=== PATIENT | female | born 1985 | race American Indian/Alaskan Native ===

== ENCOUNTER 2017-08-28 07:59 | Emergency (ER) | payer MEDICAID ==
[2017-08-28] MEDS ORDERED: NACL 0.9% 1000 ML 1,000 ML IV ONE (09:38)
[2017-08-28 10:39] LABS: Hematocrit 37.9 % (30.3-42.9); Hemoglobin 12.8 gm/dl (10.1-14.3); Mean Corpuscular HGB Conc 34 % (30-34); Mean Corpuscular Hemoglobin 28 pg (28-32); Mean Corpuscular Volume 82 fl (79-97); Platelet Count 181 K/mm3 (140-440); Red Blood Count 4.61 M/mm3 (3.65-5.03); Red Cell Distribution Width 13.6 % (13.2-15.2); White Blood Count 5.8 K/mm3 (4.5-11.0)
[2017-08-28 10:58] LABS: Bilirubin,Urine NEG (Negative); Blood,Urine SM (Negative); Ketones,Urine NEG (Negative); Leukocyte Esterase,Urine NEG (Negative); Mucus,Urine FEW /HPF; Nitrite,Urine NEG (Negative); Protein,Urine <15 mg/dL mg/dL (Negative)
[2017-08-28 11:55] LABS: Anion Gap 16 mmol/L; BUN/Creatinine Ratio 17; Blood Urea Nitrogen 10 mg/dL (7-17); Calcium 8.9 mg/dL (8.4-10.2); Carbon Dioxide 26 mmol/L (22-30); Chloride 103.3 mmol/L (98-107); Glucose 81 mg/dL (65-100); Potassium 4.4 mmol/L (3.6-5.0); Sodium 141 mmol/L (137-145)
--- NOTE | 2017-08-28 11:57 | XRay Report ---
Chest 2 views: History: Chest pain. Findings: Normal cardiomediastinal silhouette. Trachea is midline. No consolidation, pneumothorax or pleural effusion. Impression: No acute cardiopulmonary findings.
[2017-08-28] MEDS ORDERED: REGLAN IV ONE (11:59)
[2017-08-28] MEDS ORDERED: TORADOL IV ONE (11:59)
[2017-08-28] MEDS ORDERED: BENADRYL IV ONE (11:59)
--- NOTE | 2017-08-28 13:53 | Cat Scan Report ---
CT scan of head without IV contrast: History: Headache and dizziness. Findings: Ventricles are normal in size and midline in location. No evidence of acute ischemia, hemorrhage or mass. No extra-axial fluid collection. Normal brainstem and cerebellum. Impression: No acute infiltrate or
--- NOTE | 2017-08-28 14:38 | Emergency Department Report ---
ED Chest Pain HPI - General Chief Complaint: Chest Pain Stated Complaint: CHEST PAIN, HEADACHE Source: patient Mode of arrival: Ambulatory Limitations: No Limitations - History of Present Illness Severity scale (0 -10): 10 - Related Data Previous Rx's Medication Instructions Recorded Last Taken Type Albuterol Sulfate [Ventolin HFA] 2 puff IH Q4H PRN #1 hfa.aer.ad 01/18/16 2 Months Ago Rx Fluconazole [Diflucan TAB] 150 mg PO ONCE #1 tablet 03/25/16 Unknown Rx Sulfamethoxazole/Trimethoprim 1 each PO BID #14 tablet 03/25/16 Unknown Rx [Bactrim DS TAB] Naproxen [Naprosyn TAB] 500 mg PO BID PRN #25 tablet 01/12/17 Unknown Rx Nitrofurantoin [place]/M-Cryst 100 mg PO Q12HR #14 capsule 01/12/17 Unknown Rx [Macrobid CAP] Allergies Allergy/AdvReac Type Severity Reaction Status Date / Time Penicillins Allergy Rash Verified 05/29/16 18:14 ED Review of Systems ROS: Stated complaint: CHEST PAIN, HEADACHE Other details as noted in HPI ED Past Medical Hx - Past Medical History Hx Seizures: Yes (no meds) Hx Asthma: Yes Additional medical history: Vaginal delivery x 1 - Surgical History Additional Surgical History: , ectopic - Social History Smoking Status: Never Smoker Substance Use Type: None - Medications Home Medications: Home Medications Medication Instructions Recorded Confirmed Last Taken Type Albuterol Sulfate [Ventolin HFA] 2 puff IH Q4H PRN #1 hfa.aer.ad 01/18/16 2 Months Ago Rx Fluconazole [Diflucan TAB] 150 mg PO ONCE #1 tablet 03/25/16 Unknown Rx Sulfamethoxazole/Trimethoprim 1 each PO BID #14 tablet 03/25/16 Unknown Rx [Bactrim DS TAB] Naproxen [Naprosyn TAB] 500 mg PO BID PRN #25 tablet 01/12/17 Unknown Rx Nitrofurantoin [place]/M-Cryst 100 mg PO Q12HR #14 capsule 01/12/17 Unknown Rx [Macrobid CAP] ED Physical Exam - General Limitations: No Limitations ED Course Vital Signs 08/28/17 08:06 Temperature 98.7 F Pulse Rate 81 Respiratory 18 Rate Blood Pressure 133/86 O2 Sat by Pulse 100 Oximetry CASSANDRA score - Cassandra Score Age > 65: (0) No (0) Aspirin use within the Past 7 Days: (0) No 3 or more CAD Risk Factors: (0) No 2 or more Angina events in past 24 hrs: (0) No Known CAD with more than 50% Stenosis: (0) No Elevated Cardiac Markers: (0) No ST Deviation Greater than 0.5mm: (0) No CASSANDRA Score: 0 ED Medical Decision Making - Lab Data Result diagrams: 08/28/17 10:14 08/28/17 10:14 Critical care attestation.: If time is entered above; I have spent that time in minutes in the direct care of this critically ill patient, excluding procedure time. ED Disposition Condition: Stable Referrals: PRIMARY CARE, [Primary Care Provider] - 3-5 Days
[2017-08-28 15:22] VITALS: BP 108/66
== END 2017-08-28 15:21 | disposition home or self-care (01) ==
LOC: ED 07:59
DX: R07.9 Chest pain, unspecified (principal); R51 Headache; Z88.0 Allergy status to penicillin
CPT/HCPCS: 36415; 70450; 71020; 80048; 81001; 83690; 84484; 84703; 85027; 93005; 93010; 96361; 96374; 96375; 99284; J1200; J1885; J2765; J7030

== ENCOUNTER 2018-04-16 17:21 | Emergency (ER) | payer MEDICAID ==
--- NOTE | 2018-04-16 23:25 | Emergency Department Report ---
ED Headache HPI - General Chief Complaint: Headache Stated Complaint: GOVEA/ABD PAIN Time Seen by Provider: 04/16/18 23:17 - History of Present Illness Initial Comments: 32-year-old female past medical history headaches, seizures, asthma presents with complaint of 3 days of persistent headache. Denies fevers chills nausea vomiting neck pain chest pain palpitations shortness of breath dysuria or hematuria increased urinary frequency abdominal pain or palpitations. Patient is awake alert and oriented 3 fully lucid. Denies any recent head trauma. Denies any alcohol or drug use. Denies smoking. Patient states she has had headaches like this in the past. Has not taken anything today for her current headache. Denies any earache sore throat fevers chills or cough. Adamantly denies any chest pain or pleuritic chest pain or palpitations. Timing/Duration: episodic, waxing and waning, other (3 days) Quality: moderate Head Injury Location: frontal Recent Head Trauma: occasional headaches Associated Symptoms: denies symptoms Allergies/Adverse Reactions: Allergies Penicillins Allergy (Verified 05/29/16 18:14) Rash Home Medications: Ambulatory Orders Albuterol Sulfate [Ventolin HFA] 2 puff IH Q4H PRN #1 hfa.aer.ad 01/18/16 Fluconazole [Diflucan TAB] 150 mg PO ONCE #1 tablet 03/25/16 Sulfamethoxazole/Trimethoprim [Bactrim DS TAB] 1 each PO BID #14 tablet Naproxen [Naprosyn TAB] 500 mg PO BID PRN #25 tablet 01/12/17 Nitrofurantoin [place]/M-Cryst [Macrobid CAP] 100 mg PO Q12HR #14 capsule 01/12/17 Meloxicam 7.5 mg PO QAM #5 tablet 08/28/17 Ibuprofen [Motrin] 600 mg PO Q8H PRN #15 tablet 04/17/18 ED Review of Systems ROS: Stated complaint: GOVEA/ABD PAIN Other details as noted in HPI Constitutional: denies: chills, fever Eyes: denies: eye pain, eye discharge, vision change ENT: denies: ear pain, throat pain Respiratory: denies: cough, shortness of breath, wheezing Cardiovascular: denies: chest pain, palpitations Endocrine: no symptoms reported Gastrointestinal: denies: abdominal pain, nausea, diarrhea Genitourinary: denies: urgency, dysuria, discharge Musculoskeletal: denies: back pain, joint swelling, arthralgia Skin: denies: rash, lesions Neurological: headache. denies: weakness, paresthesias Psychiatric: denies: anxiety, depression Hematological/Lymphatic: denies: easy bleeding, easy bruising ED Past Medical Hx - Past Medical History Previous Medical History?: Yes Hx Seizures: Yes (no meds) Hx Asthma: Yes Additional medical history: Vaginal delivery x 1 - Surgical History Past Surgical History?: Yes Additional Surgical History: , ectopic - Social History Smoking Status: Never Smoker - Medications Home Medications: Home Medications Medication Instructions Recorded Confirmed Last Taken Type Albuterol Sulfate [Ventolin HFA] 2 puff IH Q4H PRN #1 hfa.aer.ad 01/18/16 2 Months Ago Rx ~01/24/16 Fluconazole [Diflucan TAB] 150 mg PO ONCE #1 tablet 03/25/16 Unknown Rx Sulfamethoxazole/Trimethoprim 1 each PO BID #14 tablet 03/25/16 Unknown Rx [Bactrim DS TAB] Naproxen [Naprosyn TAB] 500 mg PO BID PRN #25 tablet 01/12/17 Unknown Rx Nitrofurantoin [place]/M-Cryst 100 mg PO Q12HR #14 capsule 01/12/17 Unknown Rx [Macrobid CAP] Meloxicam 7.5 mg PO QAM #5 tablet 08/28/17 Unknown Rx Ibuprofen [Motrin] 600 mg PO Q8H PRN #15 tablet 04/17/18 Unknown Rx ED Physical Exam - General Limitations: No Limitations General appearance: alert, in no apparent distress - Head Head exam: Present: atraumatic, normocephalic - Eye Eye exam: Present: normal appearance, PERRL, EOMI - ENT ENT exam: Present: mucous membranes moist - Neck Neck exam: Present: normal inspection - Respiratory Respiratory exam: Present: normal lung sounds bilaterally. Absent: respiratory distress - Cardiovascular Cardiovascular Exam: Present: regular rate, normal rhythm. Absent: systolic murmur, diastolic murmur, rubs, gallop - GI/Abdominal GI/Abdominal exam: Present: soft, normal bowel sounds - Extremities Exam Extremities exam: Present: normal inspection - Back Exam Back exam: Present: normal inspection - Neurological Exam Neurological exam: Present: alert, oriented X3, CN II-XII intact, normal gait - Expanded Neurological Exam Expanded Patient oriented to: Present: person, place, time Cranial nerves: EOM's Intact: Normal, Facial Sensation: Normal Cerebellar function: Finger to Nose: Normal, Heel to Delgado: Normal, Romberg: Normal Sensory exam: Upper Extremity Light Touch: Normal, Lower Extremity Light Touch: Normal Motor strength exam: RUE: 5, LUE: 5, RLE: 5, LLE: 5 DTR: tricep (R): 3+, tricep (L): 3+, knee (R): 3+, knee (L): 3+ Best Eye Response ([place]): (4) open spontaneously Best Motor Response (Jennifer): (6) obeys commands Best Verbal Response (Jennifer): (5) oriented [place] Total: 15 - Psychiatric Psychiatric exam: Present: normal affect, normal mood - Skin Skin exam: Present: warm, dry, intact, normal color. Absent: rash ED Course Vital Signs 04/16/18 17:34 Temperature 98.2 F Pulse Rate 84 Respiratory 20 Rate Blood Pressure 138/61 O2 Sat by Pulse 100 Oximetry ED Medical Decision Making - Medical Decision Making A/P: Headache 1-patient's symptoms completely resolved after 1 dose of Reglan and Tylenol. As patient has resolution of symptoms with no overt neurological deficits and had a negative CT head CT in August 2017 it is reasonable that reimaging of brain is not necessary at this time. 2-patient has no neurological deficits on clinical exam. Awake alert and oriented 3. Reports no recent head trauma. No clinical meningismus photo or phonophobia or neck rigidity on exam. Cranial nerves 2, 3, 4, 5, 6, 7, 8,10, 11 , 12 intact on clinical exam, patient is fully lucid awake alert and oriented 3 conversant. Denies any upper or lower extremity paresthesias and has 5/5 strength in bilateral upper and lower extremities on clinical exam. 3- follow-up with primary medical doctor this week 4- patient given precautions, instructed to return to the ED for any confusion, lethargy, chest pain, shortness of breath, abdominal pain, inability to tolerate by mouth, paresthesias, inability to ambulate, neck rigidity fever or chills photo phonophobia. 5- pt independently ambulatory without assistance upon discharge Critical care attestation.: If time is entered above; I have spent that time in minutes in the direct care of this critically ill patient, excluding procedure time. ED Disposition Clinical Impression: Headache Qualifiers: Headache type: tension-type Headache chronicity pattern: acute headache Intractability: not intractable Qualified Code(s): G44.209 - Tension-type headache, unspecified, not intractable Disposition: DC-01 TO HOME OR SELFCARE Is pt being admited?: No Does the pt Need Aspirin: No Condition: Stable Instructions: Acute Headache (ED), Tension Headache (ED) Prescriptions: Ibuprofen [Motrin] 600 mg PO Q8H PRN #15 tablet PRN Reason: Pain Referrals: [facility] [Provider Group] - 3-5 Days [facility] [place] [Outside] - 3-5 Days GLORIA HENDERSON MD [Staff Physician] - 3-5 Days Forms: Work/School Release Form(ED) Time of Disposition: 00:25
[2018-04-16] MEDS ORDERED: REGLAN IV ONE (23:26)
[2018-04-16] MEDS ORDERED: TYLENOL PO ONE (23:26)
[2018-04-17 00:38] VITALS: BP 124/87
[2018-04-17 01:28] LABS: Bilirubin,Urine NEG (Negative); Blood,Urine LG (Negative); Color,Urine Yellow (Yellow); Mucus,Urine FEW /HPF; Protein,Urine <15 mg/dL mg/dL (Negative)
[2018-04-17 01:44] LABS: HCG Qualitative,Urine Negative (Negative)
== END 2018-04-17 00:37 | disposition home or self-care (01) ==
LOC: ED 17:21
DX: R51 Headache (principal); Z88.0 Allergy status to penicillin; J45.909 Unspecified asthma, uncomplicated
CPT/HCPCS: 81001; 81025; 96374; 99283; J2765

== ENCOUNTER 2018-11-27 22:40 | Emergency (ER) | payer MEDICAID ==
[2018-11-27 22:53] VITALS: BP 122/88
[2018-11-27 23:27] LABS: Basophils % (Auto) 0.5 % (0.0-1.8); Eosinophils # (Auto) 0.1 K/mm3 (0.0-0.4); Eosinophils % (Auto) 1.5 % (0.0-4.3); Hematocrit 39.4 % (30.3-42.9); Hemoglobin 12.8 gm/dl (10.1-14.3); Lymphocytes # (Auto) 2.6 K/mm3 (1.2-5.4); Mean Corpuscular HGB Conc 33 % (30-34); Mean Corpuscular Volume 83 fl (79-97); Monocytes # (Auto) 0.4 K/mm3 (0.0-0.8); Monocytes % (Auto) 6.3 % (0.0-7.3); Platelet Count 217 K/mm3 (140-440); Red Blood Count 4.77 M/mm3 (3.65-5.03); Red Cell Distribution Width 14.1 % (13.2-15.2)
[2018-11-28 00:06] LABS: BUN/Creatinine Ratio 18; Blood Urea Nitrogen 11 mg/dL (7-17); Calcium 8.9 mg/dL (8.4-10.2); Hemolysis Index 23
--- NOTE | 2018-11-28 00:23 | Emergency Department Report ---
ED General Adult HPI - General Chief complaint: Chest Pain Stated complaint: CHEST PAIN /LT ANKLE Time Seen by Provider: 11/28/18 00:02 Source: patient Mode of arrival: Ambulatory Limitations: No Limitations - History of Present Illness Initial comments: Patient 33-year-old female who presents for left ankle problems primary complaint states she scraped her ankle her bed frame 2 days ago now pain and redness minimal swelling patient is an amateur there is no bleeding no drainage states worried its getting infected, patient states secondary complaint of chest wall pain with movement this is a chronic complaint for the last 6 years this pain is relieved by ibuprofen is no shortness of breath no nausea vomiting no dizziness or diaphoresis patient states symptoms are 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 Onset/Timin -: days(s) Location: lower extremity Radiation: non-radiation Severity scale (0 -10): 3 Quality: aching, other (abrasion ) Consistency: intermittent Improves with: rest Worsens with: other (palpation) Associated Symptoms: denies: chest pain, fever/chills, headaches, malaise, nausea/vomiting, shortness of breath, syncope, weakness Treatments Prior to Arrival: none - Related Data Previous Rx's Medication Instructions Recorded Last Taken Type RX: Albuterol Sulfate [Ventolin 2 puff IH Q4H PRN #1 hfa.aer.ad 01/18/16 2 Months Ago Rx HFA] ~01/24/16 Fluconazole [Diflucan TAB] 150 mg PO ONCE #1 tablet 03/25/16 Unknown Rx Sulfamethoxazole/Trimethoprim 1 each PO BID #14 tablet 03/25/16 Unknown Rx [Bactrim DS TAB] Nitrofurantoin [place]/M-Cryst 100 mg PO Q12HR #14 capsule 01/12/17 Unknown Rx [Macrobid CAP] RX: Naproxen [Naprosyn TAB] 500 mg PO BID PRN #25 tablet 01/12/17 Unknown Rx RX: Meloxicam 7.5 mg PO QAM #5 tablet 08/28/17 Unknown Rx Ibuprofen [Motrin] 600 mg PO Q8H PRN #15 tablet 04/17/18 Unknown Rx Cephalexin [Keflex] 500 mg PO TID #30 capsule 11/28/18 Unknown Rx Neomycn/Bacitrc/Polymyx/Pramox 1 applicatio TP BID 10 Days #1 tube 11/28/18 Unknown Rx [Neosporin + Pain Relief Oint] RX: Ibuprofen 800 mg PO TID PRN #30 tablet 11/28/18 Unknown Rx Allergies Allergy/AdvReac Type Severity Reaction Status Date / Time Penicillins Allergy Rash Verified 05/29/16 18:14 ED Review of Systems ROS: Stated complaint: CHEST PAIN /LT ANKLE Other details as noted in HPI Constitutional: denies: chills, fever Eyes: denies: eye pain, eye discharge, vision change ENT: denies: ear pain, throat pain Respiratory: denies: cough, shortness of breath, wheezing Cardiovascular: denies: chest pain, palpitations, syncope, paroxysmal nocturnal dyspnea Endocrine: no symptoms reported Gastrointestinal: denies: abdominal pain, nausea, diarrhea Genitourinary: denies: urgency, dysuria, discharge Musculoskeletal: other (left lateral ankle pain to abrasion ). denies: back pain, joint swelling, arthralgia Skin: lesions (left lateral ankle ). denies: rash Neurological: denies: headache, weakness, paresthesias Psychiatric: denies: anxiety, depression Hematological/Lymphatic: denies: easy bleeding, easy bruising ED Past Medical Hx - Past Medical History Previous Medical History?: Yes Hx Seizures: Yes (no meds) Hx Asthma: Yes Additional medical history: Vaginal delivery x 1 - Surgical History Past Surgical History?: Yes Additional Surgical History: , ectopic - Social History Smoking Status: Former Smoker Substance Use Type: None - Medications Home Medications: Home Medications Medication Instructions Recorded Confirmed Last Taken Type RX: Albuterol Sulfate [Ventolin 2 puff IH Q4H PRN #1 hfa.aer.ad 01/18/16 03/25/16 2 Months Ago Rx HFA] ~01/24/16 Fluconazole [Diflucan TAB] 150 mg PO ONCE #1 tablet 03/25/16 Unknown Rx Sulfamethoxazole/Trimethoprim 1 each PO BID #14 tablet 03/25/16 Unknown Rx [Bactrim DS TAB] Nitrofurantoin [place]/M-Cryst 100 mg PO Q12HR #14 capsule 01/12/17 Unknown Rx [Macrobid CAP] RX: Naproxen [Naprosyn TAB] 500 mg PO BID PRN #25 tablet 01/12/17 Unknown Rx RX: Meloxicam 7.5 mg PO QAM #5 tablet 08/28/17 Unknown Rx Ibuprofen [Motrin] 600 mg PO Q8H PRN #15 tablet 04/17/18 Unknown Rx Cephalexin [Keflex] 500 mg PO TID #30 capsule 11/28/18 Unknown Rx Neomycn/Bacitrc/Polymyx/Pramox 1 applicatio TP BID 10 Days #1 tube 11/28/18 Unknown Rx [Neosporin + Pain Relief Oint] RX: Ibuprofen 800 mg PO TID PRN #30 tablet 11/28/18 Unknown Rx ED Physical Exam - General Limitations: No Limitations General appearance: alert, in no apparent distress - Head Head exam: Present: atraumatic, normocephalic - Eye Eye exam: Present: normal appearance - ENT ENT exam: Present: mucous membranes moist - Neck Neck exam: Present: normal inspection - Respiratory Respiratory exam: Present: normal lung sounds bilaterally. Absent: respiratory distress, wheezes, stridor, chest wall tenderness - Cardiovascular Cardiovascular Exam: Present: regular rate, normal rhythm, normal heart sounds. Absent: systolic murmur, diastolic murmur, rubs, gallop - GI/Abdominal GI/Abdominal exam: Present: soft, normal bowel sounds - Rectal Rectal exam: Present: deferred - Extremities Exam Extremities exam: Present: full ROM, tenderness (left lateral ankle abrasion site ), normal capillary refill. Absent: pedal edema, joint swelling, calf tenderness - Expanded Lower Extremity Exam Left Ankle exam: Present: full ROM, tenderness, abrasion, erythema (mild no drainage no stepoff no crepitus no deformity distal pulses intact no focal abscess ). Absent: swelling, laceration, ecchymosis, deformity, crepidus, dislocation, anterior draw sign Foot/Toe exam: Present: full ROM, tenderness. Absent: swelling Neuro vascular tendon exam: Present: no vascular compromise. Absent: abnormal c ap refill, motor deficit, sensory deficit, tendon deficit Gait: Positive: observed and normal - Back Exam Back exam: Present: normal inspection - Neurological Exam Neurological exam: Present: alert, oriented X3, CN II-XII intact, normal gait, reflexes normal - Psychiatric Psychiatric exam: Present: normal affect, normal mood - Skin Skin exam: Present: warm, dry, normal color. Absent: intact (abrasion left lateral ankle ), rash ED Course Vital Signs 11/27/18 22:47 Temperature 97.6 F Pulse Rate 82 Respiratory 16 Rate Blood Pressure 122/88 O2 Sat by Pulse 99 Oximetry ED Medical Decision Making - Lab Data Result diagrams: 11/27/18 23:14 11/27/18 23:14 Labs 11/27/18 11/27/18 11/27/18 23:14 23:14 23:14 WBC 6.3 RBC 4.77 Hgb 12.8 Hct 39.4 MCV 83 MCH 27 L MCHC 33 RDW 14.1 Plt Count 217 Lymph % (Auto) 41.0 H [place] % (Auto) 6.3 Eos % (Auto) 1.5 Baso % (Auto) 0.5 Lymph # 2.6 [place] # 0.4 Eos # 0.1 Baso # 0.0 Seg Neutrophils % 50.7 Seg Neutrophils # 3.2 Sodium 135 L Potassium 4.1 Chloride 98.7 Carbon Dioxide 27 Anion Gap 13 BUN 11 Creatinine 0.6 L Estimated GFR > 60 BUN/Creatinine Ratio 18 Glucose 86 Calcium 8.9 Troponin T < 0.010 HCG, Qual Negative - Medical Decision Making There is no cp at this time ekg: nsr no ectopy, left lateral ankle mild erythem a to 1 cm abrasion scant serous drainage no abscess no fever wound is super ficvial pt given wound care instructions verbalized agreement and understanding of same. plan: NSAIDS, Keflex, tetanus, abx oint, dressing changes follow up with [facility] in 2 days for wound check return to ed if symptoms worsen pt verbalized agreement and understanding of same. Critical care attestation.: If time is entered above; I have spent that time in minutes in the direct care of this critically ill patient, excluding procedure time. ED Disposition Clinical Impression: Chest wall pain Abrasion, ankle with infection Qualifiers: Encounter type: initial encounter Laterality: left Qualified Code(s): S90.512A - Abrasion, left ankle, initial encounter Disposition: TO HOME OR SELFCARE Is pt being admited?: No Does the pt Need Aspirin: No Condition: Stable Instructions: Cellulitis (ED), Acute Wound Care (ED), Abrasion (ED), Musculoskeletal Pain (ED) Prescriptions: Cephalexin [Keflex] 500 mg PO TID #30 capsule RX: Ibuprofen 800 mg PO TID PRN #30 tablet PRN Reason: pain Neomycn/Bacitrc/Polymyx/Pramox [Neosporin + Pain Relief Oint] 1 applicatio TP BID 10 Days #1 tube Referrals: [facility] [Outside] - 3-5 Days PRIMARY CARE, [Referring] - 3-5 Days Forms: Work/School Release Form(ED) Time of Disposition: 00:34
[2018-11-28] MEDS ORDERED: KEFLEX PO ONE (00:27)
[2018-11-28] MEDS ORDERED: BOOSTRIX IM ONE (00:27)
[2018-11-28] MEDS ORDERED: ULTRAM PO ONE (00:27)
[2018-11-28] MEDS ORDERED: KEFLEX ONE (00:43)
== END 2018-11-28 01:08 | disposition home or self-care (01) ==
LOC: ED 22:40
DX: S90.512A Abrasion, left ankle, initial encounter (principal); R07.89 Other chest pain; J45.909 Unspecified asthma, uncomplicated; Z87.891 Personal history of nicotine dependence; Z79.899 Other long term (current) drug therapy; Z88.0 Allergy status to penicillin; X58.XXXA Exposure to other specified factors, initial encounter; Y93.89 Activity, other specified; Y99.0 Civilian activity done for income or pay; Y92.69 Other specified industrial and construction area as the place of occurrence of the external cause
CPT/HCPCS: 36415; 80048; 84484; 84703; 85025; 90471; 90715; 93005; 93010

== ENCOUNTER 2019-06-08 22:22 | Emergency (ER) | payer SELFPAY ==
--- NOTE | 2019-06-09 05:21 | Emergency Department Report ---
<CASEY VELOZ - Last Filed: 06/09/19 05:41> ED Back Pain/Injury HPI - General Chief Complaint: Back Pain/Injury Stated Complaint: BACK PAIN Time Seen by Provider: 06/09/19 03:43 Source: patient Limitations: No Limitations - History of Present Illness Initial Comments: Patient is a 33-year-old female who presents the emergency room with complaints of low back pain that began a few days ago. She states that she had a trip and fall and fell onto her back a few days ago. Denies any urinary symptoms. She does not report any fever, numbness, weakness, bowel or bladder incontinence, nausea, vomiting. She states her last special cycle was last week. Past medical history of asthma. States she has an allergy to penicillin. - Related Data Previous Rx's Medication Instructions Recorded Last Taken Type Albuterol Sulfate [Ventolin HFA] 2 puff IH Q4H PRN #1 hfa.aer.ad 01/18/16 2 Months Ago Rx ~01/24/16 Fluconazole [Diflucan TAB] 150 mg PO ONCE #1 tablet 03/25/16 Unknown Rx Sulfamethoxazole/Trimethoprim 1 each PO BID #14 tablet 03/25/16 Unknown Rx [Bactrim DS TAB] Naproxen [Naprosyn TAB] 500 mg PO BID PRN #25 tablet 01/12/17 Unknown Rx Nitrofurantoin [place]/M-Cryst 100 mg PO Q12HR #14 capsule 01/12/17 Unknown Rx [Macrobid CAP] Meloxicam 7.5 mg PO QAM #5 tablet 08/28/17 Unknown Rx Ibuprofen [Motrin] 600 mg PO Q8H PRN #15 tablet 04/17/18 Unknown Rx Cephalexin [Keflex] 500 mg PO TID #30 capsule 11/28/18 Unknown Rx Ibuprofen [Ibuprofen 800] 800 mg PO TID PRN #30 tablet 11/28/18 Unknown Rx Neomycn/Bacitrc/Polymyx/Pramox 1 applicatio TP BID 10 Days #1 tube 11/28/18 Unknown Rx [Neosporin + Pain Relief Oint] Cyclobenzaprine HCl [Flexeril 5 MG 5 mg PO QHS PRN #10 tablet 06/09/19 Unknown Rx TAB] Naproxen [EC-Naprosyn] 375 mg PO BID PRN #20 tablet. 06/09/19 Unknown Rx Allergies Allergy/AdvReac Type Severity Reaction Status Date / Time Penicillins Allergy Rash Verified 05/29/16 18:14 ED Review of Systems Comment: All other systems reviewed and negative ED Past Medical Hx - Past Medical History Previous Medical History?: Yes Hx Seizures: Yes (no meds) Hx Asthma: Yes Additional medical history: Vaginal delivery x 1, Angina, Last seizure years ago - Surgical History Past Surgical History?: Yes Additional Surgical History: , ectopic - Social History Smoking Status: Never Smoker - Medications Home Medications: Home Medications Medication Instructions Recorded Confirmed Last Taken Type Albuterol Sulfate [Ventolin HFA] 2 puff IH Q4H PRN #1 hfa.aer.ad 01/18/16 03/25/16 2 Months Ago Rx ~01/24/16 Fluconazole [Diflucan TAB] 150 mg PO ONCE #1 tablet 03/25/16 Unknown Rx Sulfamethoxazole/Trimethoprim 1 each PO BID #14 tablet 03/25/16 Unknown Rx [Bactrim DS TAB] Naproxen [Naprosyn TAB] 500 mg PO BID PRN #25 tablet 01/12/17 Unknown Rx Nitrofurantoin [place]/M-Cryst 100 mg PO Q12HR #14 capsule 01/12/17 Unknown Rx [Macrobid CAP] Meloxicam 7.5 mg PO QAM #5 tablet 08/28/17 Unknown Rx Ibuprofen [Motrin] 600 mg PO Q8H PRN #15 tablet 04/17/18 Unknown Rx Cephalexin [Keflex] 500 mg PO TID #30 capsule 11/28/18 Unknown Rx Ibuprofen [Ibuprofen 800] 800 mg PO TID PRN #30 tablet 11/28/18 Unknown Rx Neomycn/Bacitrc/Polymyx/Pramox 1 applicatio TP BID 10 Days #1 tube 11/28/18 Unknown Rx [Neosporin + Pain Relief Oint] Cyclobenzaprine HCl [Flexeril 5 MG 5 mg PO QHS PRN #10 tablet 06/09/19 Unknown Rx TAB] Naproxen [EC-Naprosyn] 375 mg PO BID PRN #20 tablet. 06/09/19 Unknown Rx ED Physical Exam - General Limitations: No Limitations General appearance: alert, in no apparent distress - Head Head exam: Present: atraumatic, normocephalic - Eye Eye exam: Present: normal appearance - ENT ENT exam: Present: mucous membranes moist - Neck Neck exam: Present: normal inspection, full ROM. Absent: tenderness - Respiratory Respiratory exam: Present: normal lung sounds bilaterally. Absent: respiratory distress, wheezes, rales, rhonchi, stridor, accessory muscle use, decreased breath sounds, prolonged expiratory - Cardiovascular Cardiovascular Exam: Present: regular rate, normal rhythm, normal heart sounds. Absent: systolic murmur, diastolic murmur, rubs, gallop - Back Exam Back exam: Present: normal inspection, full ROM, paraspinal tenderness (left sided lumbar paraspinal muscular TTP, no midline C-spine, T-spine or L-spine tenderness, no step offs, no deformities). Absent: vertebral tenderness - Neurological Exam Neurological exam: Present: alert, oriented X3, CN II-XII intact, normal gait. Absent: motor sensory deficit - Psychiatric Psychiatric exam: Present: normal affect, normal mood - Skin Skin exam: Present: warm, dry, intact ED Medical Decision Making - Lab Data Lab Results 06/09/19 Range/Units 04:43 Urine Color Straw (Yellow) Urine Turbidity Clear (Clear) Urine pH 7.0 (5.0-7.0) Ur Specific [place] 1.010 (1.003-1.030) Urine Protein <15 mg/dl (Negative) mg/dL Urine Glucose (UA) Neg (Negative) mg/dL Urine Ketones Neg (Negative) mg/dL Urine Blood Neg (Negative) Urine Nitrite Neg (Negative) Urine Bilirubin Neg (Negative) Urine Urobilinogen < 2.0 (<2.0) mg/dL Ur Leukocyte Esterase Neg (Negative) Urine WBC (Auto) < 1.0 (0.0-6.0) /HPF Urine RBC (Auto) < 1.0 (0.0-6.0) /HPF U Epithel Cells (Auto) 1.0 (0-13.0) /HPF Urine Mucus Few /HPF Urine HCG, Qual Negative (Negative) ED Disposition Clinical Impression: Muscle strain Back strain Qualifiers: Encounter type: initial encounter Qualified Code(s): S39.012A - Strain of muscle, fascia and tendon of lower back, initial encounter Disposition: TO HOME OR SELFCARE Is pt being admited?: No Does the pt Need Aspirin: No Condition: Stable Instructions: Muscle Strain (ED) Additional Instructions: please take medication as prescribed. do not drive or operate heavy machinery while taking muscle relaxer. may use ice, rest, heat, epsom salt bath. follow up with a primary care doctor in the next 2-3 days. return to the emergency room for any new or worsening symptoms. Prescriptions: Cyclobenzaprine HCl [Flexeril 5 MG TAB] 5 mg PO QHS PRN #10 tablet PRN Reason: Muscle Spasm Naproxen [EC-Naprosyn] 375 mg PO BID PRN #20 tablet.dr GRANT Reason: pain [facility] - [facility]-3 Days Time of Disposition: 05:42 Print Language: SERBIAN <QING GONZALEZ - Last Filed: 06/09/19 06:18> ED Review of Systems ROS: Stated complaint: BACK PAIN Other details as noted in HPI ED Course Vital Signs 06/08/19 23:34 Temperature 98.0 F Pulse Rate 71 Respiratory 16 Rate Blood Pressure 140/94 O2 Sat by Pulse 100 Oximetry ED Medical Decision Making - Radiology Data Radiology results: report reviewed, image reviewed Ordering Physician: CATHERINE CHU Date of Service: 06/09/19 Procedure(s): XR spine lumbosacral 2-3V Accession Number(s): [id number] cc: CATHERINE CHU Fluoro Time In Minutes: LUMBAR SPINE 3 VIEWS INDICATION / CLINICAL INFORMATION: low back pain. COMPARISON: None available. FINDINGS: No significant skeletal abnormality. Alignment is normal. Signer Name: Samir Navas MD FACR Signed: 06/09/2019 5:49 AM Workstation Name: [id number] Transcribed By: MS Dictated By: Samir Navas MD Electronically Authenticated By: Samir Navas MD Signed Date/Time: 06/09/1949 DD/ TD/TT: - Medical Decision Making xrays neg for fracture plan d/c to home with rx for nsaids, muscle relaxants follow up with pcp in 2-3 days . Critical care attestation.: If time is entered above; I have spent that time in minutes in the direct care of this critically ill patient, excluding procedure time.
[2019-06-09 05:22] LABS: Bilirubin,Urine NEG (Negative); Blood,Urine NEG (Negative); Color,Urine Straw (Yellow); Mucus,Urine FEW /HPF; Protein,Urine <15 mg/dL mg/dL (Negative); RBC,Urine < 1.0 /HPF (0.0-6.0); Urobilinogen,Urine < 2.0 mg/dL (<2.0); WBC,Urine < 1.0 /HPF (0.0-6.0)
[2019-06-09 05:23] LABS: HCG Qualitative,Urine Negative (Negative)
--- NOTE | 2019-06-09 05:54 | XRay Report ---
LUMBAR SPINE 3 VIEWS INDICATION / CLINICAL INFORMATION: low back pain. COMPARISON: None available. FINDINGS: No significant skeletal abnormality. Alignment is normal. Signer Name: Samir Navas MD FACSuzan Signed: 06/09/2019 5:49 AM Workstation Name: [id number]
[2019-06-09 06:37] VITALS: BP 110/68
== END 2019-06-09 06:35 | disposition home or self-care (01) ==
LOC: ED 22:22
DX: S39.012A Strain of muscle, fascia and tendon of lower back, initial encounter (principal); J45.909 Unspecified asthma, uncomplicated; Z79.899 Other long term (current) drug therapy; Z88.0 Allergy status to penicillin; W01.0XXA Fall on same level from slipping, tripping and stumbling without subsequent striking against object, initial encounter; Y93.89 Activity, other specified; Y92.89 Other specified places as the place of occurrence of the external cause; Y99.8 Other external cause status
CPT/HCPCS: 72100; 81001; 81025

== ENCOUNTER 2019-11-16 19:47 | Emergency (ER) | payer MEDICAID ==
--- NOTE | 2019-11-16 20:33 | Emergency Department Report ---
Blank Doc - Documentation Documentation: 34-year-old female that presents with abdominal pain with n/v. This initial assessment/diagnostic orders/clinical plan/treatment(s) is/are subject to change based on patient's health status, clinical progression and re- assessment by fellow clinical providers in the ED. Further treatment and workup at subsequent clinical providers discretion. Patient/guardians urged not to elope from the ED as their condition may be serious if not clinically assessed and managed. Initial orders include: 1- Patient sent to [facility] for further evaluation and treatment 2- labs 3- UA
[2019-11-16 21:29] LABS: Bacteria,Urine 4+ /HPF (Negative); Bilirubin,Urine NEG (Negative); Blood,Urine NEG (Negative); Color,Urine Yellow (Yellow); Mucus,Urine FEW /HPF; Protein,Urine <15 mg/dL mg/dL (Negative)
[2019-11-17] MEDS ORDERED: FAMOTIDINE 20 MG/2 ML INJ IV ONE (01:12)
[2019-11-17] MEDS ORDERED: cefTRIAXone/NS 1 GM/50 ML 1 GM/50 ML BAG IV ONE (01:12)
[2019-11-17] MEDS ORDERED: SODIUM CHLORIDE 0.9% 1000 ML 1,000 ML IV ONE (01:12)
[2019-11-17] MEDS ORDERED: DICYCLOMINE 20 MG TAB PO ONE (01:13)
[2019-11-17 02:53] LABS: Basophils % (Auto) 0.6 % (0.0-1.8); Eosinophils # (Auto) 0.1 K/mm3 (0.0-0.4); Eosinophils % (Auto) 2.7 % (0.0-4.3); Hematocrit 37.1 % (30.3-42.9); Hemoglobin 12.3 gm/dl (10.1-14.3); Lymphocytes # (Auto) 2.4 K/mm3 (1.2-5.4); Lymphocytes % (Auto) 43.8 % (13.4-35.0); Mean Corpuscular HGB Conc 33 % (30-34); Mean Corpuscular Volume 84 fl (79-97); Monocytes # (Auto) 0.4 K/mm3 (0.0-0.8); Platelet Count 209 K/mm3 (140-440); Red Blood Count 4.41 M/mm3 (3.65-5.03); Red Cell Distribution Width 14.6 % (13.2-15.2)
[2019-11-17 03:18] LABS: Alanine Aminotransferase 19 units/L (7-56); Albumin 3.4 g/dL (3.9-5); BUN/Creatinine Ratio 15; Blood Urea Nitrogen 9 mg/dL (7-17); Hemolysis Index 15
--- NOTE | 2019-11-17 03:25 | Emergency Department Report ---
<ROOSEVELT JAUREGUI - Last Filed: 11/17/19 03:37> ED N/V/D HPI - General Chief complaint: Nausea/Vomiting/Diarrhea Stated complaint: VOMITTING,STOMACH PAIN AND GOVEA Time Seen by Provider: 11/16/19 20:33 Source: patient, EMS Mode of arrival: Ambulatory Limitations: No Limitations - History of Present Illness Initial comments: Patient is a A0 34-year-old -[place] female with no past medical history who presents to the ED with a complaint of acute onset persistent severe diffuse abdominal pain with intermittent nausea and vomiting for the last 3 days worse in the last 12 hours. Patient denies vaginal bleeding, vaginal discharge, dysuria, urinary frequency and urgency, dizziness, fever, chills, cough, chest pain, shortness of breath, hematuria, low back pain syncope or palpitations and nasal and sinus congestion. MD complaint: nausea, vomiting -: Sudden, days(s) (3) Description of Vomiting: food contents, watery Associated Abdominal Pain: Yes (diffuse) Location: diffuse Radiation: none Severity: severe Pain Scale: 7 Quality: cramping, sharp Consistency: constant Improves with: none Worsens with: none Associated Symptoms: denies other symptoms, myalgias, loss of appetite, malaise, nausea/vomiting. denies: chest pain, cough, diaphoresis, fever/chills, headaches, rash, dysuria, shortness of breath, syncope, weakness, other - Related Data Previous Rx's Medication Instructions Recorded Last Taken Type Albuterol Sulfate [Ventolin HFA] 2 puff IH Q4H PRN #1 hfa.aer.ad 01/18/16 2 Months Ago Rx ~01/24/16 Naproxen [Naprosyn TAB] 500 mg PO BID PRN #25 tablet 01/12/17 Unknown Rx Nitrofurantoin [place]/M-Cryst 100 mg PO Q12HR #14 capsule 01/12/17 Unknown Rx [Macrobid CAP] Meloxicam 7.5 mg PO QAM #5 tablet 08/28/17 Unknown Rx Cephalexin [Keflex] 500 mg PO TID #30 capsule 11/28/18 Unknown Rx Ibuprofen [Ibuprofen 800] 800 mg PO TID PRN #30 tablet 11/28/18 Unknown Rx Neomycn/Bacitrc/Polymyx/Pramox 1 applicatio TP BID 10 Days #1 tube 01/18/19 Unknown Rx [Neosporin + Pain Relief Oint] Cyclobenzaprine HCl [Flexeril 5 MG 5 mg PO QHS PRN #10 tablet 06/09/19 Unknown Rx TAB] Naproxen [EC-Naprosyn] 375 mg PO BID PRN #20 tablet. 06/09/19 Unknown Rx Famotidine [Pepcid] 20 mg PO Q12H #30 tablet 11/17/19 Unknown Rx Fluconazole [Diflucan TAB] 150 mg PO ONCE #3 tablet 11/17/19 Unknown Rx Ibuprofen [Motrin 600 MG tab] 600 mg PO Q8H PRN #24 tablet 11/17/19 Unknown Rx Sulfamethoxazole/Trimethoprim 1 each PO Q12H #20 tablet 11/17/19 Unknown Rx [Bactrim DS TAB] traMADoL [Ultram] 50 mg PO Q6HR PRN #12 tablet 11/17/19 Unknown Rx Allergies Allergy/AdvReac Type Severity Reaction Status Date / Time Penicillins Allergy Rash Verified 11/16/19 19:50 ED Review of Systems Constitutional: denies: chills, fever Eyes: denies: eye pain, eye discharge, vision change ENT: denies: ear pain, throat pain Respiratory: denies: cough, shortness of breath, wheezing Cardiovascular: denies: chest pain, palpitations Endocrine: no symptoms reported Gastrointestinal: abdominal pain (diffuse), nausea, vomiting. denies: diarrhea Genitourinary: denies: urgency, dysuria, discharge Musculoskeletal: myalgia. denies: back pain, joint swelling, arthralgia Skin: denies: rash, lesions Neurological: denies: headache, weakness, paresthesias Psychiatric: denies: anxiety, depression Hematological/Lymphatic: denies: easy bleeding, easy bruising ED Past Medical Hx - Past Medical History Previous Medical History?: Yes Hx Seizures: Yes (no meds) Hx Asthma: Yes Additional medical history: Angina - Surgical History Past Surgical History?: Yes Additional Surgical History: , ectopic - Social History Smoking Status: Never Smoker - Medications Home Medications: Home Medications Medication Instructions Recorded Confirmed Last Taken Type Albuterol Sulfate [Ventolin HFA] 2 puff IH Q4H PRN #1 hfa.aer.ad 01/18/16 03/25/16 2 Months Ago Rx ~01/24/16 Naproxen [Naprosyn TAB] 500 mg PO BID PRN #25 tablet 01/12/17 Unknown Rx Nitrofurantoin [place]/M-Cryst 100 mg PO Q12HR #14 capsule 01/12/17 Unknown Rx [Macrobid CAP] Meloxicam 7.5 mg PO QAM #5 tablet 08/28/17 Unknown Rx Cephalexin [Keflex] 500 mg PO TID #30 capsule 11/28/18 Unknown Rx Ibuprofen [Ibuprofen 800] 800 mg PO TID PRN #30 tablet 11/28/18 Unknown Rx Neomycn/Bacitrc/Polymyx/Pramox 1 applicatio TP BID 10 Days #1 tube 11/28/18 Unknown Rx [Neosporin + Pain Relief Oint] Cyclobenzaprine HCl [Flexeril 5 MG 5 mg PO QHS PRN #10 tablet 06/09/19 Unknown Rx TAB] Naproxen [EC-Naprosyn] 375 mg PO BID PRN #20 tablet. 06/09/19 Unknown Rx Famotidine [Pepcid] 20 mg PO Q12H #30 tablet 11/17/19 Unknown Rx Fluconazole [Diflucan TAB] 150 mg PO ONCE #3 tablet 11/17/19 Unknown Rx Ibuprofen [Motrin 600 MG tab] 600 mg PO Q8H PRN #24 tablet 11/17/19 Unknown Rx Sulfamethoxazole/Trimethoprim 1 each PO Q12H #20 tablet 11/17/19 Unknown Rx [Bactrim DS TAB] traMADoL [Ultram] 50 mg PO Q6HR PRN #12 tablet 11/17/19 Unknown Rx ED Physical Exam - General Limitations: No Limitations General appearance: alert, in no apparent distress - Head Head exam: Present: atraumatic, normocephalic, normal inspection - Eye Eye exam: Present: normal appearance, PERRL, EOMI Pupils: Present: normal accommodation - ENT ENT exam: Present: normal exam, normal orophraynx, mucous membranes moist, TM's normal bilaterally, normal external ear exam - Neck Neck exam: Present: normal inspection, full ROM - Respiratory Respiratory exam: Present: normal lung sounds bilaterally. Absent: respiratory distress, wheezes, rales, rhonchi, chest wall tenderness, accessory muscle use, decreased breath sounds - Cardiovascular Cardiovascular Exam: Present: regular rate, normal rhythm, normal heart sounds. Absent: systolic murmur, diastolic murmur, rubs, gallop - GI/Abdominal GI/Abdominal exam: Present: soft, tenderness (palpable diffuse moderate tenderness, no guarding), normal bowel sounds. Absent: guarding, rebound, hyperactive bowel sounds, hypoactive bowel sounds, organomegaly - Extremities Exam Extremities exam: Present: normal inspection, full ROM, normal capillary refill - Back Exam Back exam: Present: normal inspection, full ROM. Absent: tenderness, muscle spasm, paraspinal tenderness - Neurological Exam Neurological exam: Present: alert, oriented X3, CN II-XII intact, normal gait, reflexes normal - Psychiatric Psychiatric exam: Present: normal affect, normal mood - Skin Skin exam: Present: warm, dry, intact, normal color. Absent: rash ED Medical Decision Making - Lab Data Result diagrams: 11/17/19 02:30 11/17/19 02:30 - Medical Decision Making This is a 34-year-old female who presented to the ED with content of acute onset persistent nausea and vomiting and diffuse abdominal pain for 3 days. In the ED, patient is alert and oriented 3 and is not in distress. Lab test results are unremarkable except for significant acute urinary tract infection in the urinalysis that shows a positive nitrite and white blood cells >49 , with bact eria +4 and large leukocyte esterase, and budding yeasts. Patient was treated in the ED for pain, nausea and vomiting also received Rocephin 1 g IV 1. Patient's symptoms are likely due to acute urinary tract infection. On reevaluation, patient's pain is well-controlled with medications. Patient was discharged home on antibiotics, pain medications and antiemetics as well as Diflucan for yeast infection. Patient was advised to follow-up with her primary care physician in 5-7 days for reevaluation or return to the ED immediately if symptoms get worse. - Differential Diagnosis UTI; Viral gastroenteritis; GERD ED Disposition Clinical Impression: UTI (urinary tract infection) Qualifiers: Urinary tract infection type: acute cystitis Hematuria presence: without hematuria Qualified Code(s): N30.00 - Acute cystitis without hematuria Abdominal pain Qualifiers: Abdominal location: generalized Qualified Code(s): R10.84 - Generalized abdominal pain Disposition: TO HOME OR SELFCARE Is pt being admited?: No Does the pt Need Aspirin: No Condition: Stable Instructions: Urinary Tract Infection in Women (ED), Vaginitis (ED), Acute Nausea and Vomiting (ED), Abdominal Pain (ED) Additional Instructions: Take medications with food, drink plenty of fluids and follow-up with your primary care physician in 7-10 days for reevaluation. Return to the ED immediately if symptoms get worse. Prescriptions: Sulfamethoxazole/Trimethoprim [Bactrim DS TAB] 1 each PO Q12H #20 tablet Fluconazole [Diflucan TAB] 150 mg PO ONCE #3 tablet Ibuprofen [Motrin 600 MG tab] 600 mg PO Q8H PRN #24 tablet PRN Reason: Pain Famotidine [Pepcid] 20 mg PO Q12H #30 tablet traMADoL [Ultram] 50 mg PO Q6HR PRN #12 tablet PRN Reason: Pain Referrals: [facility] [Outside] - 7-10 days Time of Disposition: 03:33 Print Language: SLOVAK <QING GONZALEZ - Last Filed: 11/17/19 05:25> ED Review of Systems ROS: Stated complaint: VOMITTING,STOMACH PAIN AND GOVEA Other details as noted in HPI ED Medical Decision Making - Lab Data Result diagrams: 11/17/19 02:30 11/17/19 02:30 Critical care attestation.: If time is entered above; I have spent that time in minutes in the direct care of this critically ill patient, excluding procedure time.
== END 2019-11-17 05:50 | disposition home or self-care (01) ==
LOC: ED 19:47
DX: N39.0 Urinary tract infection, site not specified (principal); J45.909 Unspecified asthma, uncomplicated
CPT/HCPCS: 36415; 80053; 81001; 83690; 84703; 85025; 87076; 87086; 87186; 96365; 96375; 99284; J0696; J7030

== ENCOUNTER 2020-08-12 15:53 | Emergency (ER) | payer SELFPAY | END 2020-08-12 15:55 | disposition left against medical advice (07) | LOC: ED 15:53 | DX: R11.10 Vomiting, unspecified (principal); Z53.21 Procedure and treatment not carried out due to patient leaving prior to being seen by health care provider ==

== ENCOUNTER 2020-09-22 11:00 | Emergency (ER) | payer SELFPAY ==
[2020-09-22 11:44] VITALS: BP 149/88
--- NOTE | 2020-09-22 11:55 | Emergency Department Report ---
ED General Adult HPI - General Chief complaint: Extremity Injury, Upper Stated complaint: RT ARM PAIN Time Seen by Provider: 09/22/20 11:45 Source: patient Mode of arrival: Ambulatory Limitations: No Limitations - History of Present Illness Initial comments: 34-year-old -[place] female patient complains of right forearm pain after lifting heavy furniture today. Patient rates her pain as a 10/10 in severity and denies any numbness/tingling/weakness in her arm or hand. She denies any direct trauma to the arm or difficulty moving the arm. Severity scale (0 -10): 10 - Related Data Previous Rx's Medication Instructions Recorded Last Taken Type Albuterol Sulfate [Ventolin HFA] 2 puff IH Q4H PRN #1 hfa.aer.ad 01/18/16 2 Months Ago Rx ~01/24/16 Naproxen [Naprosyn TAB] 500 mg PO BID PRN #25 tablet 01/12/17 Unknown Rx Nitrofurantoin [place]/M-Cryst 100 mg PO Q12HR #14 capsule 01/12/17 Unknown Rx [Macrobid CAP] Meloxicam 7.5 mg PO QAM #5 tablet 08/28/17 Unknown Rx Cephalexin [Keflex] 500 mg PO TID #30 capsule 11/28/18 Unknown Rx Ibuprofen [Ibuprofen 800] 800 mg PO TID PRN #30 tablet 11/28/18 Unknown Rx Neomycn/Bacitrc/Polymyx/Pramox 1 applicatio TP BID 10 Days #1 tube 11/28/18 Unknown Rx [Neosporin + Pain Relief Oint] Cyclobenzaprine HCl [Flexeril 5 MG 5 mg PO QHS PRN #10 tablet 06/09/19 Unknown Rx TAB] Naproxen [EC-Naprosyn] 375 mg PO BID PRN #20 tablet.dr 06/09/19 Unknown Rx Famotidine [Pepcid] 20 mg PO Q12H #30 tablet 11/17/19 Unknown Rx Fluconazole (Nf) [Diflucan TAB] 150 mg PO ONCE #3 tablet 11/17/19 Unknown Rx Ibuprofen [Motrin 600 MG tab] 600 mg PO Q8H PRN #24 tablet 11/17/19 Unknown Rx Sulfamethoxazole/Trimethoprim 1 each PO Q12H #20 tablet 11/17/19 Unknown Rx [Bactrim DS TAB] traMADoL [Ultram] 50 mg PO Q6HR PRN #12 tablet 11/17/19 Unknown Rx Diclofenac Sodium 75 mg PO BID PRN #14 tablet. 09/22/20 Unknown Rx Allergies Allergy/AdvReac Type Severity Reaction Status Date / Time Penicillins Allergy Rash Verified 11/16/19 19:50 ED Review of Systems ROS: Stated complaint: RT ARM PAIN Other details as noted in HPI Constitutional: denies: malaise, weakness Gastrointestinal: denies: abdominal pain Musculoskeletal: arthralgia Hematological/Lymphatic: denies: easy bruising ED Past Medical Hx - Past Medical History Previous Medical History?: Yes Hx Seizures: Yes (no meds) Hx Asthma: Yes Additional medical history: Angina - Surgical History Past Surgical History?: Yes Additional Surgical History: , ectopic - Social History Smoking Status: Never Smoker - Medications Home Medications: Home Medications Medication Instructions Recorded Confirmed Last Taken Type Albuterol Sulfate [Ventolin HFA] 2 puff IH Q4H PRN #1 hfa.aer.ad 01/18/16 03/25/16 2 Months Ago Rx ~01/24/16 Naproxen [Naprosyn TAB] 500 mg PO BID PRN #25 tablet 01/12/17 Unknown Rx Nitrofurantoin [place]/M-Cryst 100 mg PO Q12HR #14 capsule 01/12/17 Unknown Rx [Macrobid CAP] Meloxicam 7.5 mg PO QAM #5 tablet 08/28/17 Unknown Rx Cephalexin [Keflex] 500 mg PO TID #30 capsule 11/28/18 Unknown Rx Ibuprofen [Ibuprofen 800] 800 mg PO TID PRN #30 tablet 11/28/18 Unknown Rx Neomycn/Bacitrc/Polymyx/Pramox 1 applicatio TP BID 10 Days #1 tube 11/28/18 Unknown Rx [Neosporin + Pain Relief Oint] Cyclobenzaprine HCl [Flexeril 5 MG 5 mg PO QHS PRN #10 tablet 06/09/19 Unknown Rx TAB] Naproxen [EC-Naprosyn] 375 mg PO BID PRN #20 tablet. 06/09/19 Unknown Rx Famotidine [Pepcid] 20 mg PO Q12H #30 tablet 11/17/19 Unknown Rx Fluconazole (Nf) [Diflucan TAB] 150 mg PO ONCE #3 tablet 11/17/19 Unknown Rx Ibuprofen [Motrin 600 MG tab] 600 mg PO Q8H PRN #24 tablet 11/17/19 Unknown Rx Sulfamethoxazole/Trimethoprim 1 each PO Q12H #20 tablet 11/17/19 Unknown Rx [Bactrim DS TAB] traMADoL [Ultram] 50 mg PO Q6HR PRN #12 tablet 11/17/19 Unknown Rx Diclofenac Sodium 75 mg PO BID PRN #14 tablet. 09/22/20 Unknown Rx ED Physical Exam - General Limitations: No Limitations General appearance: alert, in no apparent distress - Head Head exam: Present: atraumatic, normocephalic - Eye Eye exam: Present: normal appearance - Neck Neck exam: Present: full ROM - Respiratory Respiratory exam: Absent: respiratory distress - Cardiovascular Cardiovascular Exam: Present: regular rate - Extremities Exam Extremities exam: Present: other (Tenderness to palpation noted of the right proximal forearm without swelling, obvious deformity, or erythema/bruising noted. Normal range of motion of the elbow, wrist, and hand noted. Normal radial and ulnar pulses noted. No tenderness to palpation noted of the elbow) - Neurological Exam Neurological exam: Present: alert, oriented X3 - Psychiatric Psychiatric exam: Present: normal affect, normal mood - Skin Skin exam: Present: warm, dry, intact, normal color. Absent: rash ED Course Vital Signs 09/22/20 11:42 Temperature 98.0 F Pulse Rate 89 Respiratory 16 Rate Blood Pressure 149/88 [Right] O2 Sat by Pulse 100 Oximetry ED Medical Decision Making - Radiology Data Radiology results: report reviewed RIGHT FOREARM 2 VIEWS INDICATION / CLINICAL INFORMATION: Proximal bony pain after heavy lifting COMPARISON: None available. FINDINGS: BONES / JOINT(S): No acute fracture or subluxation. No significant arthritis. SOFT TISSUES: No significant abnormality. ADDITIONAL FINDINGS: None. - Medical Decision Making 34-year-old -[place] female patient complains of right forearm pain after lifting heavy furniture today. Patient rates her pain as a 10/10 in severity and denies any numbness/tingling/weakness in her arm or hand. She denies any direct trauma to the arm or difficulty moving the arm. Tenderness to palpation of the proximal forearm noted on exam without obvious deformity or bruising. X-ray is negative for any acute bony abnormalities. Will treat for muscle strain with anti-inflammatories and rice method. Recommend follow-up with primary care provider. Strict return precautions were discussed in detail with patient who verbalized understanding. Critical care attestation.: If time is entered above; I have spent that time in minutes in the direct care of this critically ill patient, excluding procedure time. ED Disposition Clinical Impression: Right forearm injury Qualifiers: Encounter type: initial encounter Qualified Code(s): S59.911A - Unspecified injury of right forearm, initial encounter Disposition: TO HOME OR SELFCARE Is pt being admited?: No Condition: Stable Instructions: Elbow Sprain Prescriptions: Diclofenac Sodium 75 mg PO BID PRN #14 tablet.dr GRANT Reason: pain Referrals: [facility] [Provider Group] - 3-5 Days
--- NOTE | 2020-09-22 12:13 | XRay Report ---
RIGHT FOREARM 2 VIEWS INDICATION / CLINICAL INFORMATION: Proximal bony pain after heavy lifting COMPARISON: None available. FINDINGS: BONES / JOINT(S): No acute fracture or subluxation. No significant arthritis. SOFT TISSUES: No significant abnormality. ADDITIONAL FINDINGS: None. Signer Name: Patrick Ryan MD Signed: 09/22/2020 12:09 PM Workstation Name: [id number]
== END 2020-09-22 14:09 | disposition home or self-care (01) ==
LOC: ED 11:00
DX: S59.911A Unspecified injury of right forearm, initial encounter (principal); G40.909 Epilepsy, unspecified, not intractable, without status epilepticus; J45.909 Unspecified asthma, uncomplicated; Z98.890 Other specified postprocedural states; Z79.899 Other long term (current) drug therapy; Z88.0 Allergy status to penicillin; X58.XXXA Exposure to other specified factors, initial encounter; Y93.89 Activity, other specified; Y92.89 Other specified places as the place of occurrence of the external cause; Y99.8 Other external cause status
CPT/HCPCS: 99283

== ENCOUNTER 2021-03-08 10:54 | Emergency (ER) | payer SELFPAY ==
[2021-03-08 11:40] VITALS: BP 124/82
[2021-03-08] MEDS ORDERED: ACETAMINOPHEN 325 MG TAB PO ONE (11:40)
[2021-03-08] MEDS ORDERED: IBUPROFEN 800 MG TAB PO ONE (11:40)
--- NOTE | 2021-03-08 11:47 | Emergency Department Report ---
ED General Adult HPI - General Chief complaint: Fall Stated complaint: HEAD PAIN, BACK PAIN, LEG PAIN, FOOT PAIN, Time Seen by Provider: 03/08/21 11:40 Source: patient Mode of arrival: Ambulatory Limitations: No Limitations - History of Present Illness Initial comments: Patient complains of back pain and right foot pain after a fall injury 4 days ago. She denies trying any OTC medications for her symptoms and rates her pain as a 7/10 in severity. She also states a mild headache from hitting her head on the ground, but denies any neck pain, loss of consciousness, nausea/vomiting,, vision changes, dizziness, numbness/tingling/weakness in her limbs, difficulty with speech/ambulation. - Related Data Previous Rx's Medication Instructions Recorded Last Taken Type Albuterol Sulfate [Ventolin HFA] 2 puff IH Q4H PRN #1 hfa.aer.ad 01/18/16 2 Months Ago Rx ~01/24/16 Naproxen [Naprosyn TAB] 500 mg PO BID PRN #25 tablet 01/12/17 Unknown Rx Nitrofurantoin [place]/M-Cryst 100 mg PO Q12HR #14 capsule 01/12/17 Unknown Rx [Macrobid CAP] Meloxicam 7.5 mg PO QAM #5 tablet 08/28/17 Unknown Rx Ibuprofen [Ibuprofen 800] 800 mg PO TID PRN #30 tablet 11/28/18 Unknown Rx Neomycn/Bacitrc/Polymyx/Pramox 1 applicatio TP BID 10 Days #1 tube 11/28/18 Unknown Rx [Neosporin + Pain Relief Oint] cephALEXin [Keflex] 500 mg PO TID #30 capsule 11/28/18 Unknown Rx Cyclobenzaprine HCl [Flexeril 5 MG 5 mg PO QHS PRN #10 tablet 06/09/19 Unknown Rx TAB] Naproxen [EC-Naprosyn] 375 mg PO BID PRN #20 tablet. 06/09/19 Unknown Rx Famotidine [Pepcid] 20 mg PO Q12H #30 tablet 11/17/19 Unknown Rx Fluconazole (Nf) [Diflucan TAB] 150 mg PO ONCE #3 tablet 11/17/19 Unknown Rx Ibuprofen [Motrin 600 MG tab] 600 mg PO Q8H PRN #24 tablet 11/17/19 Unknown Rx Sulfamethoxazole/Trimethoprim 1 each PO Q12H #20 tablet 11/17/19 Unknown Rx [Bactrim DS TAB] traMADoL [Ultram] 50 mg PO Q6HR PRN #12 tablet 11/17/19 Unknown Rx Diclofenac Sodium 75 mg PO BID PRN #14 tablet.dr 09/22/20 Unknown Rx methOCARBAMOL [Robaxin TAB] 1,000 mg PO Q8H PRN #20 tablet 09/22/20 Unknown Rx Ibuprofen [Motrin 800 MG tab] 800 mg PO Q8HR PRN #20 tablet 03/08/21 Unknown Rx methocarbamoL [Methocarbamol] 500 mg PO TID PRN #15 tablet 03/08/21 Unknown Rx Allergies Allergy/AdvReac Type Severity Reaction Status Date / Time Penicillins Allergy Rash Verified 03/08/21 11:41 ED Review of Systems ROS: Stated complaint: HEAD PAIN, BACK PAIN, LEG PAIN, FOOT PAIN, Other details as noted in HPI ED Past Medical Hx - Past Medical History Hx Seizures: Yes (no meds) Hx Asthma: Yes Additional medical history: Angina - Surgical History Additional Surgical History: , ectopic - Social History Smoking Status: Never Smoker Substance Use Type: None - Medications Home Medications: Home Medications Medication Instructions Recorded Confirmed Last Taken Type Albuterol Sulfate [Ventolin HFA] 2 puff IH Q4H PRN #1 hfa.aer.ad 01/18/1603/25 2 Months Ago Rx ~01/24/16 Naproxen [Naprosyn TAB] 500 mg PO BID PRN #25 tablet 01/12/17 Unknown Rx Nitrofurantoin [place]/M-Cryst 100 mg PO Q12HR #14 capsule 01/12/17 Unknown Rx [Macrobid CAP] Meloxicam 7.5 mg PO QAM #5 tablet 08/28/17 Unknown Rx Ibuprofen [Ibuprofen 800] 800 mg PO TID PRN #30 tablet 11/28/18 Unknown Rx Neomycn/Bacitrc/Polymyx/Pramox 1 applicatio TP BID 10 Days #1 tube 11/28/18 Unknown Rx [Neosporin + Pain Relief Oint] cephALEXin [Keflex] 500 mg PO TID #30 capsule 11/28/18 Unknown Rx Cyclobenzaprine HCl [Flexeril 5 MG 5 mg PO QHS PRN #10 tablet 06/09/19 Unknown Rx TAB] Naproxen [EC-Naprosyn] 375 mg PO BID PRN #20 tablet. 06/09/19 Unknown Rx Famotidine [Pepcid] 20 mg PO Q12H #30 tablet 11/17/19 Unknown Rx Fluconazole (Nf) [Diflucan TAB] 150 mg PO ONCE #3 tablet 11/17/19 Unknown Rx Ibuprofen [Motrin 600 MG tab] 600 mg PO Q8H PRN #24 tablet 11/17/19 Unknown Rx Sulfamethoxazole/Trimethoprim 1 each PO Q12H #20 tablet 11/17/19 Unknown Rx [Bactrim DS TAB] traMADoL [Ultram] 50 mg PO Q6HR PRN #12 tablet 11/17/19 Unknown Rx Diclofenac Sodium 75 mg PO BID PRN #14 tablet. 09/22/20 Unknown Rx methOCARBAMOL [Robaxin TAB] 1,000 mg PO Q8H PRN #20 tablet 09/22/20 Unknown Rx Ibuprofen [Motrin 800 MG tab] 800 mg PO Q8HR PRN #20 tablet 03/08/21 Unknown Rx methocarbamoL [Methocarbamol] 500 mg PO TID PRN #15 tablet 03/08/21 Unknown Rx ED Physical Exam - General Limitations: No Limitations General appearance: alert, in no apparent distress - Head Head exam: Present: atraumatic, normocephalic - Eye Eye exam: Present: normal appearance. Absent: scleral icterus - Respiratory Respiratory exam: Present: normal lung sounds bilaterally. Absent: respiratory distress - Cardiovascular Cardiovascular Exam: Present: regular rate, normal rhythm. Absent: systolic murmur, diastolic murmur, rubs, gallop - GI/Abdominal GI/Abdominal exam: Present: soft. Absent: tenderness - Extremities Exam Extremities exam: Present: full ROM, other (Tenderness to palpation noted to the right heel and metatarsals without obvious deformity or swelling; patient has normal range of motion of the ankle and foot and normal capillary refill) - Back Exam Back exam: Present: full ROM, paraspinal tenderness (Lower thoracic and lumbar), vertebral tenderness (Lower thoracic and lumbar; no obvious deformities) - Expanded Back Exam Expanded Back exam: Absent: saddle anesthesia - Neurological Exam Neurological exam: Present: alert, oriented X3, normal gait. Absent: motor sensory deficit - Expanded Neurological Exam Expanded Sensory exam: Lower Extremity Light Touch: Normal Motor strength exam: RUE: 5, LUE: 5, RLE: 5, LLE: 5 - Psychiatric Psychiatric exam: Present: normal affect, normal mood - Skin Skin exam: Present: warm, dry, intact, normal color. Absent: rash ED Course Vital Signs 03/08/21 11:37 Temperature 98.7 F Pulse Rate 75 Respiratory 20 Rate Blood Pressure 124/82 O2 Sat by Pulse 100 Oximetry ED Medical Decision Making - Radiology Data Radiology results: report reviewed Thoracic spine-3 views Lumbar spine-3 views INDICATION: pain after fall. COMPARISON: Lumbar spine radiographs from 06/09/2019 IMPRESSION: Normal thoracic and lumbar spine alignment. No significant discogenic DJD or facet arthropathy. No acute osseous or soft tissue abnormality. RIGHT FOOT 3 VIEWS INDICATION: heel and metatarsal pain after fall. COMPARISON: None. IMPRESSION: No acute osseous or soft tissue abnormality. No significant DJD. - Medical Decision Making Patient complains of back pain and right foot pain after a fall injury 4 days ago. She denies trying any OTC medications for her symptoms and rates her pain as a 7/10 in severity. She also states a mild headache from hitting her head on the ground, but denies any neck pain, loss of consciousness, nausea/vomiting,, vision changes, dizziness, numbness/tingling/weakness in her limbs, difficulty with speech/ambulation. X-rays are negative for any acute bony abnormalities. Patient given Tylenol and ibuprofen and states her pain has significantly improved. Will treat with RICE method and NSAIDs. Recommend follow-up with PCP as needed. Strict return precautions discussed in detail with patient who verbalizes understanding. Critical care attestation.: If time is entered above; I have spent that time in minutes in the direct care of this critically ill patient, excluding procedure time. ED Disposition Clinical Impression: Back sprain, Other sprain of right foot, initial encounter Disposition: TO HOME OR SELFCARE Is pt being admited?: No Condition: Stable Instructions: Lumbar Sprain, Foot Sprain Prescriptions: methocarbamoL [Methocarbamol] 500 mg PO TID PRN #15 tablet PRN Reason: muscle spasm/tightness Ibuprofen [Motrin 800 MG tab] 800 mg PO Q8HR PRN #20 tablet PRN Reason: pain Referrals: [facility] [Provider Group] - 3-5 Days
[2021-03-08 13:53] LABS: HCG Qualitative,Urine Negative (Negative)
--- NOTE | 2021-03-08 15:25 | XRay Report ---
RIGHT FOOT 3 VIEWS INDICATION: heel and metatarsal pain after fall. COMPARISON: None. IMPRESSION: No acute osseous or soft tissue abnormality. No significant DJD. Signer Name: Logan Martin Jr, MD Signed: 03/08/2021 3:20 PM Workstation Name: [id number]
--- NOTE | 2021-03-08 15:27 | XRay Report ---
Thoracic spine-3 views Lumbar spine-3 views INDICATION: pain after fall. COMPARISON: Lumbar spine radiographs from 06/09/2019 IMPRESSION: Normal thoracic and lumbar spine alignment. No significant discogenic DJD or facet arth ropathy. No acute osseous or soft tissue abnormality. Signer Name: Amarjit Dimas MD Signed: 03/08/2021 3:22 PM Workstation Name: [email or web address]
== END 2021-03-08 15:44 | disposition home or self-care (01) ==
LOC: ED 10:54
DX: S39.012A Strain of muscle, fascia and tendon of lower back, initial encounter (principal); S93.601A Unspecified sprain of right foot, initial encounter; G40.909 Epilepsy, unspecified, not intractable, without status epilepticus; J45.909 Unspecified asthma, uncomplicated; Z79.899 Other long term (current) drug therapy; Z88.0 Allergy status to penicillin; W18.30XA Fall on same level, unspecified, initial encounter; Y93.89 Activity, other specified; Y92.89 Other specified places as the place of occurrence of the external cause; Y99.8 Other external cause status
CPT/HCPCS: 72070; 72100; 81025; 99283

== ENCOUNTER 2021-03-23 21:37 | Emergency (ER) | payer SELFPAY ==
[2021-03-23 22:54] VITALS: BP 144/100
--- NOTE | 2021-03-23 23:37 | Emergency Department Report ---
ED General Adult HPI - General Chief complaint: Earache Stated complaint: TISSUE STUCK IN LT EAR Time Seen by Provider: 03/23/21 23:13 Source: patient Mode of arrival: Ambulatory Limitations: No Limitations - History of Present Illness Initial comments: 35-year-old -[place] female patient presents with complaints of left ear pain after stepping tissue in her ear 3 days ago. Patient states she stopped the tissues in her ear to block out noise. She states there is no pain. She denies any drainage or decreased hearing. She rates her pain as 8/10 in severity. No fever/chills/sweats per patient. She does admit to continuously flushing her ear out with water. - Related Data Previous Rx's Medication Instructions Recorded Last Taken Type Albuterol Sulfate [Ventolin HFA] 2 puff IH Q4H PRN #1 hfa.aer.ad 01/18/16 2 Months Ago Rx ~01/24/16 Naproxen [Naprosyn TAB] 500 mg PO BID PRN #25 tablet 01/12/17 Unknown Rx Nitrofurantoin [place]/M-Cryst 100 mg PO Q12HR #14 capsule 01/12/17 Unknown Rx [Macrobid CAP] Meloxicam 7.5 mg PO QAM #5 tablet 08/28/17 Unknown Rx Ibuprofen [Ibuprofen 800] 800 mg PO TID PRN #30 tablet 11/28/18 Unknown Rx Neomycn/Bacitrc/Polymyx/Pramox 1 applicatio TP BID 10 Days #1 tube 11/28/18 Unknown Rx [Neosporin + Pain Relief Oint] cephALEXin [Keflex] 500 mg PO TID #30 capsule 11/28/18 Unknown Rx Cyclobenzaprine HCl [Flexeril 5 MG 5 mg PO QHS PRN #10 tablet 06/09/19 Unknown Rx TAB] Naproxen [EC-Naprosyn] 375 mg PO BID PRN #20 tablet. 06/09/19 Unknown Rx Famotidine [Pepcid] 20 mg PO Q12H #30 tablet 11/17/19 Unknown Rx Fluconazole (Nf) [Diflucan TAB] 150 mg PO ONCE #3 tablet 11/17/19 Unknown Rx Ibuprofen [Motrin 600 MG tab] 600 mg PO Q8H PRN #24 tablet 11/17/19 Unknown Rx Sulfamethoxazole/Trimethoprim 1 each PO Q12H #20 tablet 11/17/19 Unknown Rx [Bactrim DS TAB] traMADoL [Ultram] 50 mg PO Q6HR PRN #12 tablet 11/17/19 Unknown Rx Diclofenac Sodium 75 mg PO BID PRN #14 tablet.dr 09/22/20 Unknown Rx methOCARBAMOL [Robaxin TAB] 1,000 mg PO Q8H PRN #20 tablet 09/22/20 Unknown Rx methocarbamoL [Methocarbamol] 500 mg PO TID PRN #15 tablet 03/08/21 Unknown Rx Ibuprofen [Motrin 800 MG tab] 800 mg PO Q8HR PRN #20 tablet 03/23/21 Unknown Rx Ofloxacin 0.3% [Floxin 0.3% Otic] 10 drops OT QDAY 7 Days #1 bottle 03/23/21 Unknown Rx Allergies Allergy/AdvReac Type Severity Reaction Status Date / Time Penicillins Allergy Rash Verified 03/08/21 11:41 ED Review of Systems ROS: Stated complaint: TISSUE STUCK IN LT EAR Other details as noted in HPI Constitutional: denies: chills, fever, malaise ENT: ear pain Gastrointestinal: denies: nausea, vomiting Hematological/Lymphatic: denies: swollen glands ED Past Medical Hx - Past Medical History Previous Medical History?: Yes Hx Seizures: Yes (no meds) Hx Asthma: Yes Additional medical history: Angina - Surgical History Past Surgical History?: Yes Additional Surgical History: , ectopic - Social History Smoking Status: Never Smoker Substance Use Type: None - Medications Home Medications: Home Medications Medication Instructions Recorded Confirmed Last Taken Type Albuterol Sulfate [Ventolin HFA] 2 puff IH Q4H PRN #1 hfa.aer.ad 01/18/16 2 Months Ago Rx ~01/24/16 Naproxen [Naprosyn TAB] 500 mg PO BID PRN #25 tablet 01/12/17 Unknown Rx Nitrofurantoin [place]/M-Cryst 100 mg PO Q12HR #14 capsule 01/12/17 Unknown Rx [Macrobid CAP] Meloxicam 7.5 mg PO QAM #5 tablet 08/28/17 Unknown Rx Ibuprofen [Ibuprofen 800] 800 mg PO TID PRN #30 tablet 11/28/18 Unknown Rx Neomycn/Bacitrc/Polymyx/Pramox 1 applicatio TP BID 10 Days #1 tube 11/28/18 Unknown Rx [Neosporin + Pain Relief Oint] cephALEXin [Keflex] 500 mg PO TID #30 capsule 11/28/18 Unknown Rx Cyclobenzaprine HCl [Flexeril 5 MG 5 mg PO QHS PRN #10 tablet 06/09/19 Unknown Rx TAB] Naproxen [EC-Naprosyn] 375 mg PO BID PRN #20 tablet. 06/09/19 Unknown Rx Famotidine [Pepcid] 20 mg PO Q12H #30 tablet 11/17/19 Unknown Rx Fluconazole (Nf) [Diflucan TAB] 150 mg PO ONCE #3 tablet 11/17/19 Unknown Rx Ibuprofen [Motrin 600 MG tab] 600 mg PO Q8H PRN #24 tablet 11/17/19 Unknown Rx Sulfamethoxazole/Trimethoprim 1 each PO Q12H #20 tablet 11/17/19 Unknown Rx [Bactrim DS TAB] traMADoL [Ultram] 50 mg PO Q6HR PRN #12 tablet 11/17/19 Unknown Rx Diclofenac Sodium 75 mg PO BID PRN #14 tablet. 09/22/20 Unknown Rx methOCARBAMOL [Robaxin TAB] 1,000 mg PO Q8H PRN #20 tablet 09/22/20 Unknown Rx methocarbamoL [Methocarbamol] 500 mg PO TID PRN #15 tablet 03/08/21 Unknown Rx Ibuprofen [Motrin 800 MG tab] 800 mg PO Q8HR PRN #20 tablet 03/23/21 Unknown Rx Ofloxacin 0.3% [Floxin 0.3% Otic] 10 drops OT QDAY 7 Days #1 bottle 03/23/21 Unknown Rx ED Physical Exam - General Limitations: No Limitations General appearance: alert, in no apparent distress - Head Head exam: Present: atraumatic, normocephalic - Eye Eye exam: Present: normal appearance - Expanded ENT Exam Expanded TM/Canal exam: Erythema: Left TM, Canal Discharge: Left TM, Canal Tenderness: Left TM - Neck Neck exam: Present: normal inspection. Absent: lymphadenopathy - Respiratory Respiratory exam: Absent: respiratory distress - Cardiovascular Cardiovascular Exam: Present: regular rate - Neurological Exam Neurological exam: Present: alert, oriented X3 - Psychiatric Psychiatric exam: Present: normal affect, normal mood ED Course Vital Signs 05/13/21 22:35 Temperature 98.7 F Pulse Rate 87 Respiratory 16 Rate Blood Pressure 144/100 O2 Sat by Pulse 100 Oximetry ED Medical Decision Making - Medical Decision Making 35-year-old -[place] female patient presents with complaints of left ear pain after stepping tissue in her ear 3 days ago. Patient states she stopped the tissues in her ear to block out noise. She states there is no pain. She denies any drainage or decreased hearing. She rates her pain as 8/10 in severity. No fever/chills/sweats per patient. She does admit to continuously flushing her ear out with water. No tissue noted in left ear canal, however there is no otitis externa noted. Will treat with ofloxacin. Follow-up with her primary care doctor in 3 to 5 days. Her vitals are normal, she is well-appearing, she is stable for discharge home. Strict return precautions discussed in detail with patient who verbalizes understanding Critical care attestation.: If time is entered above; I have spent that time in minutes in the direct care of this critically ill patient, excluding procedure time. ED Disposition Clinical Impression: Left otitis externa Disposition: DC-01 TO HOME OR SELFCARE Is pt being admited?: No Condition: Stable Instructions: Otitis Externa Prescriptions: Ofloxacin 0.3% [Floxin 0.3% Otic] 10 drops OT QDAY 7 Days #1 bottle Ibuprofen [Motrin 800 MG tab] 800 mg PO Q8HR PRN #20 tablet PRN Reason: pain Referrals: [facility] [Provider Group] - 3-5 Days
== END 2021-03-24 00:10 | disposition home or self-care (01) ==
LOC: ED 21:37
DX: H60.92 Unspecified otitis externa, left ear (principal); R56.9 Unspecified convulsions; J45.909 Unspecified asthma, uncomplicated; Z98.890 Other specified postprocedural states; Z79.899 Other long term (current) drug therapy; Z88.0 Allergy status to penicillin
CPT/HCPCS: 99282

== ENCOUNTER 2021-07-02 13:57 | Emergency (ER) | payer OTHER ==
[2021-07-02 15:38] VITALS: BP 134/80
--- NOTE | 2021-07-02 16:39 | Emergency Department Report ---
Chief Complaint: Urogenital-Female Stated Complaint: BUMPS IN VAGINAL AREA - HPI History of Present Illness: 35-year-old -[place] female presents to the emergency room reporting that she has a bump on her vaginal area that she has had for 2 days. Patient denies any vaginal discharge denies any pain to the bump. No shortness of breath no chest pain no nausea no vomiting no urinary symptoms. - Exam Vital Signs: Vital Signs 07/02/21 15:37 Temperature 98.9 F Pulse Rate 61 Respiratory 12 Rate Blood Pressure 134/80 [Left] O2 Sat by Pulse 99 Oximetry Physical Exam: General: Awake, appropriately interactive, no acute distress. Neck: Supple. Full range of motion intact. Cardiovascular: Normal peripheral perfusion. Pulmonary: No respiratory distress. Patient is speaking normally without use of accessory muscles. Skin: No apparent rashes or lesions. Neurological: No facial asymmetry. Speech is clear. Follows commands. Patient is alert and oriented. Musculoskeletal: Full range of motion, no crepitus. Able to bear weight and ambulate without difficulty. Distal neurovascular and motor/sensory function is intact. Psych: Cooperative. Appropriate mood and affect. MSE screening note: Focused history and physical exam performed. Due to findings the following was ordered: 35-year-old -[place] female presents to the emergency room reporting th at she has a bump on her vaginal area that she has had for 2 days. Patient denies any vaginal discharge denies any pain to the bump. No shortness of breath no chest pain no nausea no vomiting no urinary symptoms. Recommend patient to follow-up at a [facility] or her primary care provider ED Medical Decision Making - Medical Decision Making 35-year-old -[place] female presents to the emergency room reporting that she has a bump on her vaginal area that she has had for 2 days. Patient denies any vaginal discharge denies any pain to the bump. No shortness of breath no chest pain no nausea no vomiting no urinary symptoms. Recommend patient to follow-up at a [facility] or her primary care provider ED Disposition for MSE Disposition: 01 HOME / SELF CARE / HOMELESS Is pt being admited?: No Does the pt Need Aspirin: No Condition: Stable Additional Instructions: Follow up with your [facility] or Primary Care provider Referrals: PRIMARY CARE [Primary Care Provider] - 3-5 Days [facility] [Provider Group] - 3-5 Days [facility] [Provider Group] - 3-5 Days Time of Disposition: 16:44
== END 2021-07-02 17:34 | disposition home or self-care (01) ==
LOC: ED 13:57
DX: R10.2 Pelvic and perineal pain (principal)
CPT/HCPCS: 99281

== ENCOUNTER 2021-07-31 17:26 | Emergency (ER) | payer SELFPAY ==
[2021-07-31 20:49] VITALS: BP 131/88
--- NOTE | 2021-07-31 21:14 | Emergency Department Report ---
ED ENT HPI - General Chief complaint: Earache Stated complaint: RT EAR ACHE Time Seen by Provider: 07/31/21 21:00 Source: patient Mode of arrival: Ambulatory Limitations: No Limitations - History of Present Illness MD complaint: ear pain, foreign body (headphone stuck in ears. c/o pain) -: Sudden, days(s) (1) Location: R ear Severity: moderate Quality: aching, dull Consistency: constant Improves with: none Worsens with: none - Related Data Previous Rx's Medication Instructions Recorded Last Taken Type Albuterol Sulfate [Ventolin HFA] 2 puff IH Q4H PRN #1 hfa.aer.ad 01/18/16 2 Months Ago Rx ~01/24/16 Naproxen [Naprosyn TAB] 500 mg PO BID PRN #25 tablet 01/12/17 Unknown Rx Nitrofurantoin [place]/M-Cryst 100 mg PO Q12HR #14 capsule 01/12/17 Unknown Rx [Macrobid CAP] Meloxicam 7.5 mg PO QAM #5 tablet 08/28/17 Unknown Rx Ibuprofen [Ibuprofen 800] 800 mg PO TID PRN #30 tablet 11/28/18 Unknown Rx Neomycn/Bacitrc/Polymyx/Pramox 1 applicatio TP BID 10 Days #1 tube 11/28/18 Unknown Rx [Neosporin + Pain Relief Oint] cephALEXin [Keflex] 500 mg PO TID #30 capsule 11/28/18 Unknown Rx Cyclobenzaprine HCl [Flexeril 5 MG 5 mg PO QHS PRN #10 tablet 06/09/19 Unknown Rx TAB] Naproxen [EC-Naprosyn] 375 mg PO BID PRN #20 tablet. 06/09/19 Unknown Rx Famotidine [Pepcid] 20 mg PO Q12H #30 tablet 11/17/19 Unknown Rx Fluconazole (Nf) [Diflucan TAB] 150 mg PO ONCE #3 tablet 11/17/19 Unknown Rx Ibuprofen [Motrin 600 MG tab] 600 mg PO Q8H PRN #24 tablet 11/17/19 Unknown Rx Sulfamethoxazole/Trimethoprim 1 each PO Q12H #20 tablet 11/17/19 Unknown Rx [Bactrim DS TAB] traMADoL [Ultram] 50 mg PO Q6HR PRN #12 tablet 11/17/19 Unknown Rx Diclofenac Sodium 75 mg PO BID PRN #14 tablet.dr 09/22/20 Unknown Rx methOCARBAMOL [Robaxin TAB] 1,000 mg PO Q8H PRN #20 tablet 09/22/20 Unknown Rx methocarbamoL [Methocarbamol] 500 mg PO TID PRN #15 tablet 03/08/21 Unknown Rx Ibuprofen [Motrin 800 MG tab] 800 mg PO Q8HR PRN #20 tablet 03/23/21 Unknown Rx Ofloxacin 0.3% [Floxin 0.3% Otic] 10 drops OT QDAY 7 Days #1 bottle 03/23/21 Unknown Rx Neomy/Polymyx B/Hc (Otic) Soln 4 drops AD TID #1 bottle 07/31/21 Unknown Rx [Cortisporin (Otic) Soln] Allergies Allergy/AdvReac Type Severity Reaction Status Date / Time Penicillins Allergy Rash Verified 07/02/21 15:38 ED Dental HPI - General Chief complaint: Earache Stated complaint: RT EAR ACHE Time Seen by Provider: 07/31/21 21:00 Source: patient Mode of arrival: Ambulatory Limitations: No Limitations - Related Data Previous Rx's Medication Instructions Recorded Last Taken Type Albuterol Sulfate [Ventolin HFA] 2 puff IH Q4H PRN #1 hfa.aer.ad 01/18/16 2 M onths Ago Rx ~01/24/16 Naproxen [Naprosyn TAB] 500 mg PO BID PRN #25 tablet 01/12/17 Unknown Rx Nitrofurantoin [place]/M-Cryst 100 mg PO Q12HR #14 capsule 01/12/17 Unknown Rx [Macrobid CAP] Meloxicam 7.5 mg PO QAM #5 tablet 08/28/17 Unknown Rx Ibuprofen [Ibuprofen 800] 800 mg PO TID PRN #30 tablet 11/28/18 Unknown Rx Neomycn/Bacitrc/Polymyx/Pramox 1 applicatio TP BID 10 Days #1 tube 11/28/18 Unknown Rx [Neosporin + Pain Relief Oint] cephALEXin [Keflex] 500 mg PO TID #30 capsule 11/28/18 Unknown Rx Cyclobenzaprine HCl [Flexeril 5 MG 5 mg PO QHS PRN #10 tablet 06/09/19 Unknown Rx TAB] Naproxen [EC-Naprosyn] 375 mg PO BID PRN #20 tablet. 06/09/19 Unknown Rx Famotidine [Pepcid] 20 mg PO Q12H #30 tablet 11/17/19 Unknown Rx Fluconazole (Nf) [Diflucan TAB] 150 mg PO ONCE #3 tablet 11/17/19 Unknown Rx Ibuprofen [Motrin 600 MG tab] 600 mg PO Q8H PRN #24 tablet 11/17/19 Unknown Rx Sulfamethoxazole/Trimethoprim 1 each PO Q12H #20 tablet 11/17/19 Unknown Rx [Bactrim DS TAB] traMADoL [Ultram] 50 mg PO Q6HR PRN #12 tablet 11/17/19 Unknown Rx Diclofenac Sodium 75 mg PO BID PRN #14 tablet. 09/22/20 Unknown Rx methOCARBAMOL [Robaxin TAB] 1,000 mg PO Q8H PRN #20 tablet 09/22/20 Unknown Rx methocarbamoL [Methocarbamol] 500 mg PO TID PRN #15 tablet 03/08/21 Unknown Rx Ibuprofen [Motrin 800 MG tab] 800 mg PO Q8HR PRN #20 tablet 03/23/21 Unknown Rx Ofloxacin 0.3% [Floxin 0.3% Otic] 10 drops OT QDAY 7 Days #1 bottle 03/23/21 Unknown Rx Neomy/Polymyx B/Hc (Otic) Soln 4 drops AD TID #1 bottle 07/31/21 Unknown Rx [Cortisporin (Otic) Soln] Allergies Allergy/AdvReac Type Severity Reaction Status Date / Time Penicillins Allergy Rash Verified 07/02/21 15:38 ED Review of Systems ROS: Stated complaint: RT EAR ACHE Other details as noted in HPI Comment: All other systems reviewed and negative ED Past Medical Hx - Past Medical History Previous Medical History?: Yes Hx Seizures: Yes (no meds) Hx Asthma: Yes Additional medical history: Angina - Surgical History Past Surgical History?: Yes Additional Surgical History: , ectopic - Social History Smoking Status: Never Smoker Substance Use Type: None - Medications Home Medications: Home Medications Medication Instructions Recorded Confirmed Last Taken Type Albuterol Sulfate [Ventolin HFA] 2 puff IH Q4H PRN #1 hfa.aer.ad 01/18/16 03/25/16 2 Months Ago Rx ~01/24/16 Naproxen [Naprosyn TAB] 500 mg PO BID PRN #25 tablet 01/12/17 Unknown Rx Nitrofurantoin [place]/M-Cryst 100 mg PO Q12HR #14 capsule 01/12/17 Unknown Rx [Macrobid CAP] Meloxicam 7.5 mg PO QAM #5 tablet 08/28/17 Unknown Rx Ibuprofen [Ibuprofen 800] 800 mg PO TID PRN #30 tablet 11/28/18 Unknown Rx Neomycn/Bacitrc/Polymyx/Pramox 1 applicatio TP BID 10 Days #1 tube 11/28/18 Unknown Rx [Neosporin + Pain Relief Oint] cephALEXin [Keflex] 500 mg PO TID #30 capsule 11/28/18 Unknown Rx Cyclobenzaprine HCl [Flexeril 5 MG 5 mg PO QHS PRN #10 tablet 06/09/19 Unknown Rx TAB] Naproxen [EC-Naprosyn] 375 mg PO BID PRN #20 tablet. 06/09/19 Unknown Rx Famotidine [Pepcid] 20 mg PO Q12H #30 tablet 11/17/19 Unknown Rx Fluconazole (Nf) [Diflucan TAB] 150 mg PO ONCE #3 tablet 11/17/19 Unknown Rx Ibuprofen [Motrin 600 MG tab] 600 mg PO Q8H PRN #24 tablet 11/17/19 Unknown Rx Sulfamethoxazole/Trimethoprim 1 each PO Q12H #20 tablet 11/17/19 Unknown Rx [Bactrim DS TAB] traMADoL [Ultram] 50 mg PO Q6HR PRN #12 tablet 11/17/19 Unknown Rx Diclofenac Sodium 75 mg PO BID PRN #14 tablet. 09/22/20 Unknown Rx methOCARBAMOL [Robaxin TAB] 1,000 mg PO Q8H PRN #20 tablet 09/22/20 Unknown Rx methocarbamoL [Methocarbamol] 500 mg PO TID PRN #15 tablet 03/08/21 Unknown Rx Ibuprofen [Motrin 800 MG tab] 800 mg PO Q8HR PRN #20 tablet 03/23/21 Unknown Rx Ofloxacin 0.3% [Floxin 0.3% Otic] 10 drops OT QDAY 7 Days #1 bottle 03/23/21 Unknown Rx Neomy/Polymyx B/Hc (Otic) Soln 4 drops AD TID #1 bottle 07/31/21 Unknown Rx [Cortisporin (Otic) Soln] ED Physical Exam - General Limitations: No Limitations General appearance: alert, in no apparent distress - Head Head exam: Present: atraumatic, normocephalic - Eye Eye exam: Present: normal appearance - ENT ENT exam: Present: mucous membranes moist, other (earphones stuck in rigth ear. ) - Neck Neck exam: Present: normal inspection - Respiratory Respiratory exam: Present: normal lung sounds bilaterally. Absent: respiratory distress - Cardiovascular Cardiovascular Exam: Present: regular rate, normal rhythm. Absent: systolic murmur, diastolic murmur, rubs, gallop - GI/Abdominal GI/Abdominal exam: Present: soft, normal bowel sounds - Extremities Exam Extremities exam: Present: normal inspection - Back Exam Back exam: Present: normal inspection - Neurological Exam Neurological exam: Present: alert, oriented X3 - Psychiatric Psychiatric exam: Present: normal affect, normal mood - Skin Skin exam: Present: warm, dry, intact, normal color. Absent: rash ED Course Vital Signs 07/31/21 20:45 Temperature 98.3 F Pulse Rate 69 Respiratory 14 Rate Blood Pressure 131/88 O2 Sat by Pulse 99 Oximetry - Foreign Body Removal Ear Foreign Body Suspected: plastic bead/other plasti (head phone cushion) Foreign Body Removed: yes Foreign Body Removal Technique: forceps Tympanic Membrane Intact: Yes Patient Tolerated Procedure: well Complications: pain Critical care attestation.: If time is entered above; I have spent that time in minutes in the direct care of this critically ill patient, excluding procedure time. ED Disposition Clinical Impression: Ear foreign body Disposition: HOME / SELF CARE / HOMELESS Is pt being admited?: No Does the pt Need Aspirin: No Condition: Stable Instructions: Ear Foreign Body Prescriptions: Neomy/Polymyx B/Hc (Otic) Soln [Cortisporin (Otic) Soln] 4 drops AD TID #1 bottle Referrals: PRIMARY CARE, [Primary Care Provider] - 3-5 Days [facility] [Provider Group] - 3-5 Days
== END 2021-07-31 21:30 | disposition home or self-care (01) ==
LOC: ED 17:26
DX: S00.451A Superficial foreign body of right ear, initial encounter (principal); J45.909 Unspecified asthma, uncomplicated; Z98.890 Other specified postprocedural states; Z88.0 Allergy status to penicillin; Z79.899 Other long term (current) drug therapy; X58.XXXA Exposure to other specified factors, initial encounter; Y93.89 Activity, other specified; Y92.89 Other specified places as the place of occurrence of the external cause; Y99.8 Other external cause status
CPT/HCPCS: 99281

== ENCOUNTER 2021-08-21 12:54 | Emergency (ER) | payer OTHER ==
[2021-08-21 13:30] VITALS: BP 151/99
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
== END 2021-08-21 14:25 | disposition left against medical advice (07) ==
LOC: ED 12:54
DX: M79.671 Pain in right foot (principal); J45.909 Unspecified asthma, uncomplicated; Z98.890 Other specified postprocedural states; Z79.899 Other long term (current) drug therapy; Z88.0 Allergy status to penicillin; V87.7XXA Person injured in collision between other specified motor vehicles (traffic), initial encounter; Y93.89 Activity, other specified; Y92.488 Other paved roadways as the place of occurrence of the external cause; Y99.8 Other external cause status
CPT/HCPCS: 99282

== ENCOUNTER 2021-10-24 17:38 | Emergency (ER) | payer SELFPAY ==
[2021-10-24] MEDS ORDERED: traMADol 50 MG TAB PO ONE (19:19)
[2021-10-24] MEDS ORDERED: ACETAMINOPHEN 500 MG TAB PO ONE (19:19)
--- NOTE | 2021-10-24 19:19 | Emergency Department Report ---
ED General Adult HPI - General Chief complaint: Weakness Stated complaint: KNOT ALL OVER HEAD Time Seen by Provider: 10/24/21 19:11 Source: patient Mode of arrival: Ambulatory Limitations: No Limitations - History of Present Illness Initial comments: Chief complaint feeling hot all over, numbness in hands and feet HPI: This is a 36-year-old female with history of asthma seizures who presents with nasal congestion and itchy throat. Tingling in hands and feet. -: Gradual, days(s) (2 days) Location: left, right, upper extremity, lower extremity Severity scale (0 -10): 4 Quality: burning Consistency: constant Improves with: none Worsens with: none Associated Symptoms: denies other symptoms - Related Data Previous Rx's Medication Instructions Recorded Last Taken Type Albuterol Sulfate [Ventolin HFA] 2 puff IH Q4H PRN #1 hfa.aer.ad 01/18/16 2 Months Ago Rx ~01/24/16 Naproxen [Naprosyn TAB] 500 mg PO BID PRN #25 tablet 01/12/17 Unknown Rx Nitrofurantoin [place]/M-Cryst 100 mg PO Q12HR #14 capsule 01/12/17 Unknown Rx [Macrobid CAP] Meloxicam 7.5 mg PO QAM #5 tablet 08/28/17 Unknown Rx Ibuprofen [Ibuprofen 800] 800 mg PO TID PRN #30 tablet 11/28/18 Unknown Rx Neomycn/Bacitrc/Polymyx/Pramox 1 applicatio TP BID 10 Days #1 tube 11/28/18 Unknown Rx [Neosporin + Pain Relief Oint] cephALEXin [Keflex] 500 mg PO TID #30 capsule 11/28/18 Unknown Rx Cyclobenzaprine HCl [Flexeril 5 MG 5 mg PO QHS PRN #10 tablet 06/09/19 Unknown Rx TAB] Naproxen [EC-Naprosyn] 375 mg PO BID PRN #20 tablet. 06/09/19 Unknown Rx Famotidine [Pepcid] 20 mg PO Q12H #30 tablet 11/17/19 Unknown Rx Fluconazole (Nf) [Diflucan TAB] 150 mg PO ONCE #3 tablet 11/17/19 Unknown Rx Ibuprofen [Motrin 600 MG tab] 600 mg PO Q8H PRN #24 tablet 11/17/19 Unknown Rx Sulfamethoxazole/Trimethoprim 1 each PO Q12H #20 tablet 11/17/19 Unknown Rx [Bactrim DS TAB] traMADoL [Ultram] 50 mg PO Q6HR PRN #12 tablet 11/17/19 Unknown Rx Diclofenac Sodium 75 mg PO BID PRN #14 tablet.dr 09/22/20 Unknown Rx methOCARBAMOL [Robaxin TAB] 1,000 mg PO Q8H PRN #20 tablet 09/22/20 Unknown Rx methocarbamoL [Methocarbamol] 500 mg PO TID PRN #15 tablet 03/08/21 Unknown Rx Ibuprofen [Motrin 800 MG tab] 800 mg PO Q8HR PRN #20 tablet 03/23/21 Unknown Rx Ofloxacin 0.3% [Floxin 0.3% Otic] 10 drops OT QDAY 7 Days #1 bottle 03/23/21 Unknown Rx Neomy/Polymyx B/Hc (Otic) Soln 4 drops AD TID #1 bottle 07/31/21 Unknown Rx [Cortisporin (Otic) Soln] Ibuprofen [Motrin 800 MG tab] 800 mg PO Q8HR PRN #15 tablet 10/24/21 Unknown Rx Multivitamin 1 each PO DAILY 90 Days #90 tablet 10/24/21 Unknown Rx Allergies Allergy/AdvReac Type Severity Reaction Status Date / Time Penicillins Allergy Rash Verified 10/24/21 18:04 ED Review of Systems ROS: Stated complaint: KNOT ALL OVER HEAD Other details as noted in HPI Comment: All other systems reviewed and negative Constitutional: malaise. denies: chills, fever ENT: congestion Cardiovascular: denies: chest pain Gastrointestinal: denies: abdominal pain, nausea, vomiting Neurological: paresthesias ED Past Medical Hx - Past Medical History Previous Medical History?: Yes Hx Seizures: Yes (no meds) Hx Asthma: Yes Additional medical history: Angina - Surgical History Past Surgical History?: Yes Additional Surgical History: , ectopic - Social History Smoking Status: Never Smoker Substance Use Type: None - Medications Home Medications: Home Medications Medication Instructions Recorded Confirmed Last Taken Type Albuterol Sulfate [Ventolin HFA] 2 puff IH Q4H PRN #1 hfa.aer.ad 01/18/16 03/25/16 2 Months Ago Rx ~01/24/16 Naproxen [Naprosyn TAB] 500 mg PO BID PRN #25 tablet 01/12/17 Unknown Rx Nitrofurantoin [place]/M-Cryst 100 mg PO Q12HR #14 capsule 01/12/17 Unknown Rx [Macrobid CAP] Meloxicam 7.5 mg PO QAM #5 tablet 08/28/17 Unknown Rx Ibuprofen [Ibuprofen 800] 800 mg PO TID PRN #30 tablet 11/28/18 Unknown Rx Neomycn/Bacitrc/Polymyx/Pramox 1 applicatio TP BID 10 Days #1 tube 11/28/18 Unknown Rx [Neosporin + Pain Relief Oint] cephALEXin [Keflex] 500 mg PO TID #30 capsule 11/28/18 Unknown Rx Cyclobenzaprine HCl [Flexeril 5 MG 5 mg PO QHS PRN #10 tablet 06/09/19 Unknown Rx TAB] Naproxen [EC-Naprosyn] 375 mg PO BID PRN #20 tablet. 06/09/19 Unknown Rx Famotidine [Pepcid] 20 mg PO Q12H #30 tablet 11/17/19 Unknown Rx Fluconazole (Nf) [Diflucan TAB] 150 mg PO ONCE #3 tablet 11/17/19 Unknown Rx Ibuprofen [Motrin 600 MG tab] 600 mg PO Q8H PRN #24 tablet 11/17/19 Unknown Rx Sulfamethoxazole/Trimethoprim 1 each PO Q12H #20 tablet 11/17/19 Unknown Rx [Bactrim DS TAB] traMADoL [Ultram] 50 mg PO Q6HR PRN #12 tablet 11/17/19 Unknown Rx Diclofenac Sodium 75 mg PO BID PRN #14 tablet. 09/22/20 Unknown Rx methOCARBAMOL [Robaxin TAB] 1,000 mg PO Q8H PRN #20 tablet 09/22/20 Unknown Rx methocarbamoL [Methocarbamol] 500 mg PO TID PRN #15 tablet 03/08/21 Unknown Rx Ibuprofen [Motrin 800 MG tab] 800 mg PO Q8HR PRN #20 tablet 03/23/21 Unknown Rx Ofloxacin 0.3% [Floxin 0.3% Otic] 10 drops OT QDAY 7 Days #1 bottle 03/23/21 Unknown Rx Neomy/Polymyx B/Hc (Otic) Soln 4 drops AD TID #1 bottle 07/31/21 Unknown Rx [Cortisporin (Otic) Soln] Ibuprofen [Motrin 800 MG tab] 800 mg PO Q8HR PRN #15 tablet 10/24/21 Unknown Rx Multivitamin 1 each PO DAILY 90 Days #90 tablet 10/24/21 Unknown Rx ED Physical Exam - General Limitations: No Limitations General appearance: alert, in no apparent distress - Head Head exam: Present: atraumatic, normocephalic - Eye Eye exam: Present: normal appearance - ENT ENT exam: Present: mucous membranes moist - Neck Neck exam: Present: normal inspection, full ROM - Respiratory Respiratory exam: Present: normal lung sounds bilaterally. Absent: respiratory distress, wheezes, rales, rhonchi - Cardiovascular Cardiovascular Exam: Present: regular rate, normal rhythm, normal heart sounds. Absent: systolic murmur, diastolic murmur, rubs, gallop - GI/Abdominal GI/Abdominal exam: Present: soft, normal bowel sounds. Absent: distended, tenderness, guarding, rebound - Extremities Exam Extremities exam: Present: normal inspection - Back Exam Back exam: Present: normal inspection - Neurological Exam Neurological exam: Present: alert, oriented X3 - Psychiatric Psychiatric exam: Present: normal affect, normal mood - Skin Skin exam: Present: warm, dry, intact, normal color. Absent: rash ED Course Vital Signs 10/24/21 18:03 Temperature 98.2 F Pulse Rate 91 H Respiratory 14 Rate Blood Pressure 146/108 [Left] O2 Sat by Pulse 99 Oximetry ED Medical Decision Making - Medical Decision Making Viral syndrome: Normal physical exam normal neurological exam given Tylenol emergency department. Prescribed ibuprofen and multivitamin. Critical care attestation.: If time is entered above; I have spent that time in minutes in the direct care of this critically ill patient, excluding procedure time. ED Disposition Clinical Impression: Viral syndrome Disposition: HOME / SELF CARE / HOMELESS Is pt being admited?: No Does the pt Need Aspirin: No Condition: Stable Instructions: Viral Illness, Adult Prescriptions: Ibuprofen [Motrin 800 MG tab] 800 mg PO Q8HR PRN #15 tablet PRN Reason: Pain , Severe (7-10) Multivitamin 1 each PO DAILY 90 Days #90 tablet Referrals: JAVI HUSAIN MD [Staff Physician] - 3-5 Days
[2021-10-24 20:19] VITALS: BP 137/87
== END 2021-10-24 20:19 | disposition home or self-care (01) ==
LOC: ED 17:38
DX: B34.9 Viral infection, unspecified (principal); J45.909 Unspecified asthma, uncomplicated; Z98.890 Other specified postprocedural states; Z88.0 Allergy status to penicillin; Z79.899 Other long term (current) drug therapy
CPT/HCPCS: 99282

== ENCOUNTER 2022-03-02 19:47 | Emergency (ER) | payer SELFPAY ==
[2022-03-02] MEDS ORDERED: IBUPROFEN 600 MG TAB PO ONE (22:46)
--- NOTE | 2022-03-02 23:22 | Emergency Department Report ---
ED Extremity Problem HPI - General Chief complaint: Extremity Injury, Lower Stated complaint: RT KNEE & FOOT HURT Source: patient Mode of arrival: Ambulatory Limitations: No Limitations - History of Present Illness Initial comments: Patient is a 36-year-old -[place] female with past medical history of asthma and the seizures who presents to the ED with complaint of acute onset persistent nontraumatic right knee and right ankle pain after walking extensively for the last 12 hours. Patient states that bearing weight or walking makes the pain worse. Patient states that she has not taken any medications. Patient denies fall, traumatic injury, heavy lifting, low back pain, hip pain, chest pain or shortness of breath, numbness and tingling or weakness of lower extremities bilaterally. MD Complaint: extremity pain (Right knee and right ankle pain) -: Sudden, hour(s) (12) Location: right, lower extremity (Right knee and right ankle pain), knee, other (Ankle) History of Same: No -: Yes arthralgia (Right knee and right ankle pain) Severity scale (0 -10): 7 Quality: aching, sharp Consistency: constant Improves with: nothing Worsens with: weight bearing, walking, exertion, palpation Associated Symptoms: denies other symptoms, arthralgias (Right knee and right ankle pain). denies: chest pain, shortness of breath, fever, myalgias, rash - Related Data Previous Rx's Medication Instructions Recorded Last Taken Type Albuterol Sulfate [Ventolin HFA] 2 puff IH Q4H PRN #1 hfa.aer.ad 01/18/16 2 Months Ago Rx ~01/24/16 Naproxen [Naprosyn TAB] 500 mg PO BID PRN #25 tablet 01/12/17 Unknown Rx Nitrofurantoin [place]/M-Cryst 100 mg PO Q12HR #14 capsule 01/12/17 Unknown Rx [Macrobid CAP] Meloxicam 7.5 mg PO QAM #5 tablet 08/28/17 Unknown Rx Ibuprofen [Ibuprofen 800] 800 mg PO TID PRN #30 tablet 11/28/18 Unknown Rx Neomycn/Bacitrc/Polymyx/Pramox 1 applicatio TP BID 10 Days #1 tube 11/28/18 Unknown Rx [Neosporin + Pain Relief Oint] cephALEXin [Keflex] 500 mg PO TID #30 capsule 11/28/18 Unknown Rx Cyclobenzaprine HCl [Flexeril 5 MG 5 mg PO QHS PRN #10 tablet 06/09/19 Unknown Rx TAB] Naproxen [EC-Naprosyn] 375 mg PO BID PRN #20 tablet. 06/09/19 Unknown Rx Famotidine [Pepcid] 20 mg PO Q12H #30 tablet 11/17/19 Unknown Rx Fluconazole (Nf) [Diflucan TAB] 150 mg PO ONCE #3 tablet 11/17/19 Unknown Rx Sulfamethoxazole/Trimethoprim 1 each PO Q12H #20 tablet 11/17/19 Unknown Rx [Bactrim DS TAB] traMADoL [Ultram] 50 mg PO Q6HR PRN #12 tablet 11/17/19 Unknown Rx Diclofenac Sodium 75 mg PO BID PRN #14 tablet. 09/22/20 Unknown Rx methOCARBAMOL [Robaxin TAB] 1,000 mg PO Q8H PRN #20 tablet 09/22/20 Unknown Rx methocarbamoL [Methocarbamol] 500 mg PO TID PRN #15 tablet 03/08/21 Unknown Rx Ibuprofen [Motrin 800 MG tab] 800 mg PO Q8HR PRN #20 tablet 03/23/21 Unknown Rx Ofloxacin 0.3% [Floxin 0.3% Otic] 10 drops OT QDAY 7 Days #1 bottle 03/23/21 Unknown Rx Neomy/Polymyx B/Hc (Otic) Soln 4 drops AD TID #1 bottle 07/31/21 Unknown Rx [Cortisporin (Otic) Soln] Ibuprofen [Motrin 800 MG tab] 800 mg PO Q8HR PRN #15 tablet 10/24/21 Unknown Rx Multivitamin 1 each PO DAILY 90 Days #90 tablet 10/24/21 Unknown Rx Baclofen 20 mg PO Q12H PRN #20 tab 03/02/22 Unknown Rx Ibuprofen [Motrin 600 MG tab] 600 mg PO Q8H PRN #30 tablet 03/02/22 Unknown Rx Allergies Allergy/AdvReac Type Severity Reaction Status Date / Time Penicillins Allergy Rash Verified 10/24/21 18:04 ED Review of Systems ROS: Stated complaint: RT KNEE & FOOT HURT Other details as noted in HPI Constitutional: denies: chills, fever Eyes: denies: eye pain, eye discharge, vision change ENT: denies: ear pain, throat pain Respiratory: denies: cough, shortness of breath, wheezing Cardiovascular: denies: chest pain, palpitations Endocrine: no symptoms reported Gastrointestinal: denies: abdominal pain, nausea, diarrhea Genitourinary: denies: urgency, dysuria, discharge Musculoskeletal: arthralgia (Right knee and right ankle pain). denies: back pain, joint swelling Skin: denies: rash, lesions Neurological: denies: headache, weakness, paresthesias Psychiatric: denies: anxiety, depression Hematological/Lymphatic: denies: easy bleeding, easy bruising ED Past Medical Hx - Past Medical History Hx Seizures: Yes (no meds) Hx Asthma: Yes Additional medical history: Angina - Surgical History Additional Surgical History: , ectopic - Social History Smoking Status: Light Tobacco Smoker - Medications Home Medications: Home Medications Medication Instructions Recorded Confirmed Last Taken Type Albuterol Sulfate [Ventolin HFA] 2 puff IH Q4H PRN #1 hfa.aer.ad 01/18/16 03/25/16 2 Months Ago Rx ~01/24/16 Naproxen [Naprosyn TAB] 500 mg PO BID PRN #25 tablet 01/12/17 Unknown Rx Nitrofurantoin [place]/M-Cryst 100 mg PO Q12HR #14 capsule 01/12/17 Unknown Rx [Macrobid CAP] Meloxicam 7.5 mg PO QAM #5 tablet 08/28/17 Unknown Rx Ibuprofen [Ibuprofen 800] 800 mg PO TID PRN #30 tablet 11/28/18 Unknown Rx Neomycn/Bacitrc/Polymyx/Pramox 1 applicatio TP BID 10 Days #1 tube 11/28/18 Unknown Rx [Neosporin + Pain Relief Oint] cephALEXin [Keflex] 500 mg PO TID #30 capsule 11/28/18 Unknown Rx Cyclobenzaprine HCl [Flexeril 5 MG 5 mg PO QHS PRN #10 tablet 06/09/19 Unknown Rx TAB] Naproxen [EC-Naprosyn] 375 mg PO BID PRN #20 tablet.dr 06/09/19 Unknown Rx Famotidine [Pepcid] 20 mg PO Q12H #30 tablet 11/17/19 Unknown Rx Fluconazole (Nf) [Diflucan TAB] 150 mg PO ONCE #3 tablet 11/17/19 Unknown Rx Sulfamethoxazole/Trimethoprim 1 each PO Q12H #20 tablet 11/17/19 Unknown Rx [Bactrim DS TAB] traMADoL [Ultram] 50 mg PO Q6HR PRN #12 tablet 11/17/19 Unknown Rx Diclofenac Sodium 75 mg PO BID PRN #14 tablet.dr 09/22/20 Unknown Rx methOCARBAMOL [Robaxin TAB] 1,000 mg PO Q8H PRN #20 tablet 09/22/20 Unknown Rx methocarbamoL [Methocarbamol] 500 mg PO TID PRN #15 tablet 03/08/21 Unknown Rx Ibuprofen [Motrin 800 MG tab] 800 mg PO Q8HR PRN #20 tablet 03/23/21 Unknown Rx Ofloxacin 0.3% [Floxin 0.3% Otic] 10 drops OT QDAY 7 Days #1 bottle 03/23/21 Unknown Rx Neomy/Polymyx B/Hc (Otic) Soln 4 drops AD TID #1 bottle 07/31/21 Unknown Rx [Cortisporin (Otic) Soln] Ibuprofen [Motrin 800 MG tab] 800 mg PO Q8HR PRN #15 tablet 10/24/21 Unknown Rx Multivitamin 1 each PO DAILY 90 Days #90 tablet 10/24/21 Unknown Rx Baclofen 20 mg PO Q12H PRN #20 tab 03/02/22 Unknown Rx Ibuprofen [Motrin 600 MG tab] 600 mg PO Q8H PRN #30 tablet 03/02/22 Unknown Rx ED Physical Exam - General Limitations: No Limitations General appearance: alert, in no apparent distress - Head Head exam: Present: atraumatic, normocephalic, normal inspection - Eye Eye exam: Present: normal appearance, PERRL, EOMI Pupils: Present: normal accommodation - ENT ENT exam: Present: normal exam, normal orophraynx, mucous membranes moist, TM's normal bilaterally, normal external ear exam - Neck Neck exam: Present: normal inspection, full ROM. Absent: tenderness - Respiratory Respiratory exam: Present: normal lung sounds bilaterally. Absent: respiratory distress, wheezes, rales, rhonchi, stridor, chest wall tenderness, accessory muscle use, decreased breath sounds, prolonged expiratory - Cardiovascular Cardiovascular Exam: Present: regular rate, normal rhythm, normal heart sounds. Absent: systolic murmur, diastolic murmur, rubs, gallop - GI/Abdominal GI/Abdominal exam: Present: soft, normal bowel sounds. Absent: tenderness, guarding, rebound, hyperactive bowel sounds, hypoactive bowel sounds, organomegaly, mass - Extremities Exam Extremities exam: Present: normal inspection, full ROM, tenderness (Palpable right knee and right ankle tenderness), normal capillary refill. Absent: pedal edema, joint swelling, calf tenderness - Back Exam Back exam: Present: normal inspection, full ROM. Absent: tenderness, CVA tenderness (R), CVA tenderness (L), muscle spasm, paraspinal tenderness, vertebral tenderness - Neurological Exam Neurological exam: Present: alert, oriented X3, CN II-XII intact, normal gait, reflexes normal - Psychiatric Psychiatric exam: Present: normal affect, normal mood - Skin Skin exam: Present: warm, dry, intact, normal color. Absent: rash ED Course Vital Signs 03/02/22 22:17 Temperature 97.9 F Pulse Rate 86 Respiratory 16 Rate Blood Pressure 129/86 O2 Sat by Pulse 100 Oximetry ED Medical Decision Making - Medical Decision Making This is a 36-year-old -[place] female with past medical history of asthma and seizures who presents to the ED with complaint of acute onset persistent nontraumatic right knee and right ankle pain after walking extensively for the last 12 hours. Patient states that bearing weight or walking makes the pain worse. Patient states that she has not taken any medications. In the ED, patient is alert and oriented x3 and is not in any distress. Patient was treated for pain in the ED and discharged home on medications for pain and advised to follow-up with her primary care physician in 7 to 10 days for reevaluation. Patient was advised return to the ED immediately if symptoms get worse. - Differential Diagnosis Muscle strain; muscle spasm; tendinitis; Critical care attestation.: If time is entered above; I have spent that time in minutes in the direct care of this critically ill patient, excluding procedure time. ED Disposition Clinical Impression: Right ankle tendonitis Sprain of right knee Qualifiers: Encounter type: initial encounter Involved ligament of knee: unspecified ligament Qualified Code(s): S83.91XA - Sprain of unspecified site of right knee, initial encounter Muscle strain of right lower extremity Qualifiers: Encounter type: initial encounter Qualified Code(s): S86.911A - Strain of unspecified muscle(s) and tendon(s) at lower leg level, right leg, initial encounter Disposition: HOME / SELF CARE / HOMELESS Is pt being admited?: No Does the pt Need Aspirin: No Condition: Stable Instructions: Muscle Strain, [id number], Knee Sprain, Adult, [id number], Tendinitis, [id number] Additional Instructions: Your symptoms are likely muscle strain or muscle spasm or tendinitis. Therefore take medications with food, drink plenty of fluids and follow-up with your primary care physician in 7 to 10 days for reevaluation. Return to the ED immediately if symptoms get worse. Prescriptions: Baclofen 20 mg PO Q12H PRN #20 tab PRN Reason: Muscle Spasm Ibuprofen [Motrin 600 MG tab] 600 mg PO Q8H PRN #30 tablet PRN Reason: Pain Referrals: [facility] [Provider Group] - 3-5 Days Forms: Work/School Release Form(ED) Time of Disposition: 23:22 Print Language: TRISTANIAN
[2022-03-03 04:46] VITALS: BP 123/66
== END 2022-03-03 04:46 | disposition home or self-care (01) ==
LOC: ED 19:47
DX: S83.91XA Sprain of unspecified site of right knee, initial encounter (principal); S86.911A Strain of unspecified muscle(s) and tendon(s) at lower leg level, right leg, initial encounter; M77.8 Other enthesopathies, not elsewhere classified; J45.909 Unspecified asthma, uncomplicated; F17.200 Nicotine dependence, unspecified, uncomplicated; Z88.0 Allergy status to penicillin; Z79.899 Other long term (current) drug therapy; X58.XXXA Exposure to other specified factors, initial encounter; Y93.89 Activity, other specified; Y92.89 Other specified places as the place of occurrence of the external cause; Y99.8 Other external cause status
CPT/HCPCS: 99282

== ENCOUNTER 2022-04-17 19:43 | Emergency (ER) | payer SELFPAY ==
[2022-04-17 23:42] LABS: Basophils % (Auto) 0.8 % (0.0-1.8); Eosinophils # (Auto) 0.4 K/mm3 (0.0-0.4); Eosinophils % (Auto) 6.5 % (0.0-4.3); Hematocrit 39.7 % (30.3-42.9); Hemoglobin 12.7 gm/dl (10.1-14.3); Lymphocytes # (Auto) 2.5 K/mm3 (1.2-5.4); Lymphocytes % (Auto) 43.2 % (13.4-35.0); Mean Corpuscular HGB Conc 32 % (30-34); Mean Corpuscular Volume 83 fl (79-97); Monocytes # (Auto) 0.4 K/mm3 (0.0-0.8); Monocytes % (Auto) 6.8 % (0.0-7.3); Platelet Count 287 K/mm3 (140-440); Red Blood Count 4.77 M/mm3 (3.65-5.03); Red Cell Distribution Width 14.3 % (13.2-15.2)
[2022-04-18 08:21] VITALS: BP 130/68
--- NOTE | 2022-04-18 09:51 | Emergency Department Report ---
ED Dysuria HPI - HPI Chief Complaint: Vaginal Bleeding Stated Complaint: VAGINAL SPOTTING,PREGNATE Time Seen by Provider: 04/18/22 07:51 Duration: 3 Days Location of Discomfort: Urethra (dysuria) Severity: Mild Symptoms: Dysuria: Yes, Frequency: No, Suprapubic Pain: Yes, Flank Pain: No, Fever: No, Hematuria: Yes, Abdominal Pain: No Other History: This is a 36-year-old female with no past medical history presents to the ED today complaining of hematuria x2 to 3 days. Patient states she has had some suprapubic pain as well and noticed every time she wipes she sees pinkish on the urine. She denies any abdominal pain, fever, nausea vomiting or diarrhea, vaginal discharge or vaginal bleed. ED Review of Systems ROS: Stated complaint: VAGINAL SPOTTING,PREGNATE Other details as noted in HPI Comment: All other systems reviewed and negative ED Past Medical Hx - Past Medical History Hx Seizures: Yes (no meds) Hx Asthma: Yes Additional medical history: Angina - Surgical History Additional Surgical History: , ectopic - Social History Smoking Status: Light Tobacco Smoker - Medications Home Medications: Home Medications Medication Instructions Recorded Confirmed Last Taken Type Albuterol Sulfate [Ventolin HFA] 2 puff IH Q4H PRN #1 hfa.aer.ad 01/18/16 03/25/16 2 Months Ago Rx ~01/24/16 Naproxen [Naprosyn TAB] 500 mg PO BID PRN #25 tablet 01/12/17 Unknown Rx Nitrofurantoin [place]/M-Cryst 100 mg PO Q12HR #14 capsule 01/12/17 Unknown Rx [Macrobid CAP] Meloxicam 7.5 mg PO QAM #5 tablet 08/28/17 Unknown Rx Ibuprofen [Ibuprofen 800] 800 mg PO TID PRN #30 tablet 11/28/18 Unknown Rx Neomycn/Bacitrc/Polymyx/Pramox 1 applicatio TP BID 10 Days #1 tube 11/28/18 Unknown Rx [Neosporin + Pain Relief Oint] cephALEXin [Keflex] 500 mg PO TID #30 capsule 11/28/18 Unknown Rx Cyclobenzaprine HCl [Flexeril 5 MG 5 mg PO QHS PRN #10 tablet 06/09/19 Unknown Rx TAB] Naproxen [EC-Naprosyn] 375 mg PO BID PRN #20 tablet. 06/09/19 Unknown Rx Famotidine [Pepcid] 20 mg PO Q12H #30 tablet 11/17/19 Unknown Rx Fluconazole (Nf) [Diflucan TAB] 150 mg PO ONCE #3 tablet 11/17/19 Unknown Rx traMADoL [Ultram] 50 mg PO Q6HR PRN #12 tablet 11/17/19 Unknown Rx Diclofenac Sodium 75 mg PO BID PRN #14 tablet. 09/22/20 Unknown Rx methOCARBAMOL [Robaxin TAB] 1,000 mg PO Q8H PRN #20 tablet 09/22/20 Unknown Rx methocarbamoL [Methocarbamol] 500 mg PO TID PRN #15 tablet 03/08/21 Unknown Rx Ibuprofen [Motrin 800 MG tab] 800 mg PO Q8HR PRN #20 tablet 03/23/21 Unknown Rx Ofloxacin 0.3% [Floxin 0.3% Otic] 10 drops OT QDAY 7 Days #1 bottle 03/23/21 Unknown Rx Neomy/Polymyx B/Hc (Otic) Soln 4 drops AD TID #1 bottle 07/31/21 Unknown Rx [Cortisporin (Otic) Soln] Ibuprofen [Motrin 800 MG tab] 800 mg PO Q8HR PRN #15 tablet 10/24/21 Unknown Rx Multivitamin 1 each PO DAILY 90 Days #90 tablet 10/24/21 Unknown Rx Baclofen 20 mg PO Q12H PRN #20 tab 03/02/22 Unknown Rx Ibuprofen [Motrin 600 MG tab] 600 mg PO Q8H PRN #30 tablet 03/02/22 Unknown Rx Phenazopyridine [Pyridium] 100 mg PO TID #10 tab 04/18/22 Unknown Rx Sulfamethoxazole/Trimethoprim 1 each PO Q12H #20 tablet 04/18/22 Unknown Rx [Bactrim DS TAB] Dysuria Exam - Exam General: Vital signs noted. No distress. Alert and acting appropriately. Exam: Yes Moist Mucous Membranes, No CVA Tenderness, No Abdominal Tenderness, No Rigidity or Guarding Labs: Lab Results 04/17/22 04/17/22 04/17/22 Range/Units 23:06 23:06 23:06 WBC 5.9 (4.5-11.0) K/mm3 RBC 4.77 (3.65-5.03) M/mm3 Hgb 12.7 (10.1-14.3) gm/dl Hct 39.7 (30.3-42.9) % MCV 83 (79-97) fl MCH 27 L (28-32) pg MCHC 32 (30-34) % RDW 14.3 (13.2-15.2) % Plt Count 287 (140-440) K/mm3 Lymph % (Auto) 43.2 H (13.4-35.0) % [place] % (Auto) 6.8 (0.0-7.3) % Eos % (Auto) 6.5 H (0.0-4.3) % Baso % (Auto) 0.8 (0.0-1.8) % Lymph # (Auto) 2.5 (1.2-5.4) K/mm3 [place] # (Auto) 0.4 (0.0-0.8) K/mm3 Eos # (Auto) 0.4 (0.0-0.4) K/mm3 Baso # (Auto) 0.0 (0.0-0.1) K/mm3 Seg Neutrophils % 42.7 (40.0-70.0) % Seg Neutrophils # 2.5 (1.8-7.7) K/mm3 HCG, Qual Negative (Negative) HCG, Quant < 2 (0-4) mIU/mL Blood Type 04/17/22 Range/Units 23:06 WBC (4.5-11.0) K/mm3 RBC (3.65-5.03) M/mm3 Hgb (10.1-14.3) gm/dl Hct (30.3-42.9) % MCV (79-97) fl MCH (28-32) pg MCHC (30-34) % RDW (13.2-15.2) % Plt Count (140-440) K/mm3 Lymph % (Auto) (13.4-35.0) % [place] % (Auto) (0.0-7.3) % Eos % (Auto) (0.0-4.3) % Baso % (Auto) (0.0-1.8) % Lymph # (Auto) (1.2-5.4) K/mm3 [place] # (Auto) (0.0-0.8) K/mm3 Eos # (Auto) (0.0-0.4) K/mm3 Baso # (Auto) (0.0-0.1) K/mm3 Seg Neutrophils % (40.0-70.0) % Seg Neutrophils # (1.8-7.7) K/mm3 HCG, Qual (Negative) HCG, Quant (0-4) mIU/mL Blood Type O POSITIVE ED Course Vital Signs 04/17/22 04/18/22 22:03 08:20 Temperature 98.4 F 98.6 F Pulse Rate 72 71 Respiratory 20 16 Rate Blood Pressure 155/92 Blood Pressure 130/68 [Right] O2 Sat by Pulse 98 100 Oximetry ED Medical Decision Making - Lab Data Result diagrams: 04/17/22 23:06 04/18/22 09:53 26-year-old female presents with hematuria. Labs within normal limits. Patient in no acute distress throughout ED stay. Urinalysis Discussed all results with patient. Discussed with patient take medication as prescribed. - Medical Decision Making 36-year-old female presents with hematuria and dysuria secondary to urinary tract infection ED course: Urinalysis is positive for bacteria, leuks, blood, nitrite, all other labs within normal limits, test negative. I discussed this findings with the patient. Patient received 1 dose of Rocephin in ED I discussed the patient to make sure he completes all of the antibiotic dose even until symptoms resolve. I discussed with the patient on Pyridium will turn his urine orangeish color but will stop once he stops taking pyridium Patient is in no acute distress, patient also has on instructions were given to her - Differential Diagnosis UTI, pyelonephritis, Critical care attestation.: If time is entered above; I have spent that time in minutes in the direct care of this critically ill patient, excluding procedure time. ED Disposition Clinical Impression: Hematuria, Dysuria Disposition: 01 HOME / SELF CARE / HOMELESS Is pt being admited?: No Does the pt Need Aspirin: No Condition: Stable Instructions: Dysuria, Hematuria, Adult Additional Instructions: Make sure to follow up with the primary care physician/infrastructure project manager as discussed. Take all your medications as you've been prescribed. If you have any worsening symptoms or develop new symptoms please return to ED immediately. Prescriptions: Sulfamethoxazole/Trimethoprim [Bactrim DS TAB] 1 each PO Q12H #20 tablet Phenazopyridine [Pyridium] 100 mg PO TID #10 tab Referrals: JAVI HUSAIN MD [Primary Care Provider] - 3-5 Days [facility] [Outside] - 3-5 Days [facility] [Outside] - 3-5 Days [facility] [Provider Group] - 3-5 Days Forms: Work/School Release Form(ED) Time of Disposition: 13:23
[2022-04-18 12:26] LABS: Alanine Aminotransferase 8 units/L (7-56); Albumin 4.1 g/dL (3.9-5); BUN/Creatinine Ratio 12; Blood Urea Nitrogen 11 mg/dL (7-17); Calcium 8.8 mg/dL (8.4-10.2); Hemolysis Index 3
[2022-04-18 13:25] LABS: Bilirubin,Urine Negative (Negative); Color,Urine Yellow (Yellow)
[2022-04-18 13:26] LABS: Blood,Urine Large (Negative)
[2022-04-18] MEDS ORDERED: LIDOCAINE-MPF (1%) 10 MG/1 ML VIAL 5 ML INFILTRATI ONE (13:40)
[2022-04-18 14:09] LABS: Bacteria,Urine 2+ /HPF (Negative); Hyaline Casts,Urine 9 /LPF; Mucus,Urine 1+ /HPF
[2022-04-18 14:22] LABS: WBC,Urine > 182.0 /HPF (0.0-6.0)
== END 2022-04-18 14:00 | disposition home or self-care (01) ==
LOC: ED 19:43
DX: R31.9 Hematuria, unspecified (principal); R30.0 Dysuria; R56.9 Unspecified convulsions; J45.909 Unspecified asthma, uncomplicated; Z98.890 Other specified postprocedural states; F17.290 Nicotine dependence, other tobacco product, uncomplicated
CPT/HCPCS: 36415; 80053; 81001; 84702; 84703; 85025; 86900; 86901; 96372; 99283; J0696; J3490

== ENCOUNTER 2022-07-03 19:38 | Emergency (ER) | payer SELFPAY ==
[2022-07-03 23:46] VITALS: BP 137/100
[2022-07-04] MEDS ORDERED: IBUPROFEN 600 MG TAB PO ONE (03:09)
[2022-07-04] MEDS ORDERED: predniSONE 50 MG TAB PO ONE (03:09)
[2022-07-04] MEDS ORDERED: ACETAMINOPHEN 500 MG TAB PO ONE (03:09)
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
== END 2022-07-04 06:42 | disposition home or self-care (01) ==
LOC: ED 19:38
DX: S83.91XA Sprain of unspecified site of right knee, initial encounter (principal); S93.401A Sprain of unspecified ligament of right ankle, initial encounter; M76.51 Patellar tendinitis, right knee; X58.XXXA Exposure to other specified factors, initial encounter; Y93.89 Activity, other specified; Y92.89 Other specified places as the place of occurrence of the external cause; Y99.8 Other external cause status
CPT/HCPCS: 99282; J7512